=== PATIENT | male | born 1955 | race Caucasian/White ===

== ENCOUNTER 2019-04-27 11:42 | Inpatient (IN) ==
--- NOTE | 2019-04-27 11:51 | Emergency Department Note ---
Disposition Clinical Impression: Chest pain Qualifiers: Chest pain type: unspecified Qualified Code(s): R07.9 - Chest pain, unspecified Disposition: Admitted As Inpatient Condition: Fair Referrals: Jake Moore MD [Primary Care Provider] - Time of Disposition: 13:26 Chest Pain HPI - General Stated Complaint: CP Time Seen by Provider: 04/27/19 11:46 Vital Signs Reviewed: Yes Nursing Notes Reviewed: Yes - History of Present Illness HPI Narrative: 63-year-old male presents from home with little sister bedside for evaluation of chest pain. Onset approximate 7:30 this morning. It awoke him from sleep. De scribed as heaviness of right arm and shoulder and neck pain and heaviness present while he was laying down. Unchanged when he got up and walked. He then sat in a chair and his pain continued with the addition of right chest wall sharp stabbing sensation. Has shortness of breath and was diaphoretic. No nausea or vomiting. Very similar to him as his TN 2 years ago with exception of the location of the chest pain; was in the left parasternal 2 years ago and is now right upper parasternal today. PMH: Hypertension, hyperlipidemia, diabetes, CAD with ACS status post stent x3- 4. History of bilateral lower extremity chronic DVT on anticoagulant unknown to the patient. Habits: Current every day cigarette smoker. ROS: Positive: Right-sided chest pain including right shoulder, right arm, right neck with associated dyspnea or diaphoresis Negative: Nausea, vomiting, palpitations, trauma, fever, chills, abdominal pain, unusual back pain All systems ED: reviewed and negative except as stated. Review of Systems: As Per HPI Physical Exam Vital Signs Reviewed General: Patient is alert, oriented, and appears uncomfortable. Head: atraumatic, normocephalic Eye: normal appearance, PERRL, EOMI, no scleral icterus, no conjunctival injection ENT: mucous membranes moist, normal external ear exam Neck: normal inspection, trachea midline, full ROM Chest: normal inspection, symmetric chest rise. Mild pain to palpation of right upper chest wall. Respiratory: Good respiratory effort. Bilateral breath sounds are clear without wheezing, crackles, or rhonchi. Cardiovascular: Regular rate and rhythm. No clicks, rubs, gallops, or murmors. Normal heart sounds. Bilateral radial pulses 2/4 and equal. No pedal edema. Abdomen: Bowel sounds present normoactive. Abdomen is soft, nondistended, and nontender. No guarding or rebound. No organomegaly noted. Musculoskeletal: Spontaneously moving all extremities. Skin: warm, dry, intact. Neuro: GCS 15. No focal neurologic deficits observed. Psych: Patient's affect is appropriate for situation. Course Course Narrative: EKG #1 EKG dated 04/27/20 at 11:46 interpreted as sinus rhythm with rate of 69. NC 140, QRS was 6, QTC 423. Normal axis. 0.[address] elevation in lead 3, [address] elevation in lead V3. 0.[address] depression in aVL. No previous EKG for comparison. EKG #2 EKG dated at 1126 interpreted as sinus rhythm with rate of 73. NC 150, QRS 13, QTC 435. AVL unchanged in lead 3 unchanged. V3 with no ST elevation now. Chest x-ray is unremarkable. Serum hematology is unremarkable. Serum chemistries remarkable; initial troponin within normal limits. EKG demonstrates nonspecific ST-T changes. They do not follow an anatomic distribution and there are no reciprocal changes evident. Patient did not receive some nitroglycerin; he was chest pain-free. Thus far, patient has received full dose aspirin. Patient's cardiac history and his symptoms being similar to his pervious TN, he is agreeable to admission for continued evaluation. Patient currently does not have a vp hr diversity. He is agreeable to getting set up with a vp hr diversity at some point during his evaluation at this facility. I discussed the above the admitting hospitalist, Dr. Trevino, who agrees to acc ept the patient for continued cardiac evaluation. Chest X-Ray 04/27/19 12:03 IMPRESSION: No acute findings. D/ / 04/27/2019 12:26:24 Christopher Engel MD / christian Interpreting Provider: Christopher Engel MD Vital Signs Temperature 98.7 F 04/27/19 11:48 Pulse Rate 69 04/27/19 11:48 Respiratory Rate 14 04/27/19 11:48 Blood Pressure 162/109 04/27/19 11:48 O2 Sat by Pulse Oximetry 97 04/27/19 11:48 Temperature 98.7 F 04/27/19 11:48 Pulse Rate 69 04/27/19 11:48 Respiratory Rate 14 04/27/19 11:48 Blood Pressure 162/109 04/27/19 11:48 O2 Sat by Pulse Oximetry 97 04/27/19 11:48 Oxygen Delivery Oxygen Delivery Room Air Chest Pain - Lab Data Result diagrams: 04/27/19 11:56 04/27/19 11:56 Lab Results 04/27/19 04/27/19 04/27/19 Range/Units 11:56 11:56 11:56 WBC 15.2 H (4.3-11.1) K/mcL RBC 4.66 (4.19-5.50) M/mcL Hgb 15.6 (12.9-16.9) g/dL Hct 45.3 (37.5-50.1) % MCV 97.2 (83.0-100.0) fL MCH 33.5 H (28.0-33.3) pg MCHC 34.4 (31.6-35.5) g/dL RDW 13.2 (11.5-14.5) % Plt Count 230 (140-400) K/mcL MPV 9.6 (9.4-12.4) fL Immature Gran % 0.5 (0-4) % Seg Neutrophils % 69.6 % Lymphocytes % 22.7 % Monocytes % 5.8 % Eosinophils % 0.9 % Basophils % 0.5 % Neutrophils # 10.6 H (1.6-8.9) K/mcL Lymphocytes # 3.5 (0.6-4.6) K/mcL Monocytes # 0.9 (0.0-1.3) K/mcL Eosinophils # 0.1 (0.0-0.6) K/mcL Basophils # 0.1 (0.0-0.2) K/mcL PT 11.1 (9.4-12.1) Seconds INR 1.0 APTT 30.1 (26.0-36.0) Seconds Sodium 134 L (136-145) mEq/L Potassium 4.4 (3.5-5.1) mEq/L Chloride 100 (98-107) mEq/L Carbon Dioxide 26 (23-29) mEq/L BUN 13 (8-23) mg/dL Creatinine 0.84 (0.70-1.30) mg/dL Est GFR ( Amer) > 60 (> 60) Est GFR (Non-Af Amer) > 60 (> 60) BUN/Creatinine Ratio 15 (6-26) Glucose 203 H (70-105) mg/dL Calculated Osmolality 284 (280-300) Calcium 9.8 (8.6-10.3) mg/dL Troponin I 0.03 (< 0.04) ng/mL Heart Score - Score History: Moderately Suspicious EKG: Non Specific repolarisation Disturbance Age: 45-65 Risk Factors: Equal/Greater than 3 risk factor or history of atherosclerotic disease Troponin: Less than normal limit HEART Score Total: 5
[2019-04-27] MEDS ORDERED: Nitroglycerin 0.4 MG TAB.SUBL SL PRN (12:03)
[2019-04-27] MEDS ORDERED: Aspirin 81 MG TAB.CHEW PO ONE (12:03)
[2019-04-27 12:23] LABS: Basophils # 0.1 K/mcL (0.0-0.2); Basophils % 0.5 %; Eosinophils # 0.1 K/mcL (0.0-0.6); Eosinophils % 0.9 %; Hematocrit 45.3 % (37.5-50.1); Hemoglobin 15.6 g/dL (12.9-16.9); Immature Granulocytes % 0.5 % (0-4); Lymphocytes # 3.5 K/mcL (0.6-4.6); Lymphocytes % 22.7 %; Mean Corpuscular HGB Conc 34.4 g/dL (31.6-35.5); Mean Corpuscular Hemoglobin 33.5 pg (28.0-33.3); Mean Corpuscular Volume 97.2 fL (83.0-100.0); Mean Platelet Volume 9.6 fL (9.4-12.4); Monocytes # 0.9 K/mcL (0.0-1.3); Monocytes % 5.8 %; Neutrophils # 10.6 K/mcL (1.6-8.9); Platelet Count 230 K/mcL (140-400); Red Blood Count 4.66 M/mcL (4.19-5.50); Red Cell Distribution Width 13.2 % (11.5-14.5); Segmented Neutrophils % 69.6 %; White Blood Count 15.2 K/mcL (4.3-11.1)
[2019-04-27 12:32] LABS: Prothrombin Time 11.1 Seconds (9.4-12.1)
[2019-04-27 12:35] LABS: Activated Partial Thrombo Time 30.1 Seconds (26.0-36.0)
[2019-04-27 12:42] LABS: BUN/Creatinine Ratio 15 (6-26); Blood Urea Nitrogen 13 mg/dL (8-23); Calcium 9.8 mg/dL (8.6-10.3); Carbon Dioxide 26 mEq/L (23-29); Chloride 100 mEq/L (98-107); Glucose 203 mg/dL (70-105); Osmolality,Calculated 284 (280-300); Potassium 4.4 mEq/L (3.5-5.1); Sodium 134 mEq/L (136-145); Troponin I 0.03 ng/mL (< 0.04); eGFR For African Americans > 60 (> 60); eGFR For Non-African Americans > 60 (> 60)
[2019-04-27] MEDS ORDERED: Ondansetron 4 MG/2 ML VIAL IVP PRN (13:36)
[2019-04-27] MEDS ORDERED: Naloxone 0.4 MG/ML INJ IVP PRN (13:36)
[2019-04-27] MEDS ORDERED: *HR* Labetalol 20 MG/4 ML SYRINGE IVP PRN (13:38)
--- NOTE | 2019-04-27 13:53 | Emergency Department Note ---
Disposition Clinical Impression: Chest pain Qualifiers: Chest pain type: unspecified Qualified Code(s): R07.9 - Chest pain, unspecified Disposition: Admitted As Inpatient Condition: Fair Referrals: Jkae Moore MD [Primary Care Provider] - Time of Disposition: 13:53 General Adult HPI - General Chief complaint: ED Chest Pain Stated complaint: CP Time Seen by Provider: 04/27/19 11:46 Source: patient, family Limitations: no limitations - History of Present Illness Pain Scale: 6 Past Medical History - Past Medical History Medical history: Reports: DVT, diabetes, hyperlipidemia, hypertension, myocardial infarction - Social History Smoking Status: Never smoker Alcohol use: Reports: none Drug use: Reports: none Physical Exam - General Limitations: no limitations General appearance: alert, in distress Course Vital Signs Temperature 98.7 F 04/27/19 11:48 Pulse Rate 69 04/27/19 11:48 Respiratory Rate 14 04/27/19 11:48 Blood Pressure 162/109 04/27/19 11:48 O2 Sat by Pulse Oximetry 97 04/27/19 11:48 Temperature 98.7 F 04/27/19 11:48 Pulse Rate 69 04/27/19 11:48 Respiratory Rate 14 04/27/19 11:48 Blood Pressure 162/109 04/27/19 11:48 O2 Sat by Pulse Oximetry 97 04/27/19 11:48 Oxygen Delivery Oxygen Delivery Room Air Medical Decision Making - Lab Data Result diagrams: 04/27/19 11:56 04/27/19 11:56 Lab Results 04/27/19 04/27/19 04/27/19 Range/Units 11:56 11:56 11:56 WBC 15.2 H (4.3-11.1) K/mcL RBC 4.66 (4.19-5.50) M/mcL Hgb 15.6 (12.9-16.9) g/dL Hct 45.3 (37.5-50.1) % MCV 97.2 (83.0-100.0) fL MCH 33.5 H (28.0-33.3) pg MCHC 34.4 (31.6-35.5) g/dL RDW 13.2 (11.5-14.5) % Plt Count 230 (140-400) K/mcL MPV 9.6 (9.4-12.4) fL Immature Gran % 0.5 (0-4) % Seg Neutrophils % 69.6 % Lymphocytes % 22.7 % Monocytes % 5.8 % Eosinophils % 0.9 % Basophils % 0.5 % Neutrophils # 10.6 H (1.6-8.9) K/mcL Lymphocytes # 3.5 (0.6-4.6) K/mcL Monocytes # 0.9 (0.0-1.3) K/mcL Eosinophils # 0.1 (0.0-0.6) K/mcL Basophils # 0.1 (0.0-0.2) K/mcL PT 11.1 (9.4-12.1) Seconds INR 1.0 APTT 30.1 (26.0-36.0) Seconds Sodium 134 L (136-145) mEq/L Potassium 4.4 (3.5-5.1) mEq/L Chloride 100 (98-107) mEq/L Carbon Dioxide 26 (23-29) mEq/L BUN 13 (8-23) mg/dL Creatinine 0.84 (0.70-1.30) mg/dL Est GFR ( Amer) > 60 (> 60) Est GFR (Non-Af Amer) > 60 (> 60) BUN/Creatinine Ratio 15 (6-26) Glucose 203 H (70-105) mg/dL Calculated Osmolality 284 (280-300) Calcium 9.8 (8.6-10.3) mg/dL Troponin I 0.03 (< 0.04) ng/mL Attestation Statement - Attestation Attestation: I reviewed the residents documentation and agree with the residents assessment and plan of care. I have personally had face to face time with the patient. (Brief History, Brief Exam, and MDM) I personally supervised and was present for the coronel/critical portions of the following procedures completed by the resident: EKG 63 year old male presents to the ED ith complaints of chest pain and has a histroy of mutliple stents and otherwise has is having chest pain that is simiar to his chest pain in the past of his previous attacks. troponin negative, slight early reploratization on EKG in the anterior leads with reciporcal depressions. chest pain free, we have admitted to [facility] with aSA therapy given.
[2019-04-27] MEDS ORDERED: *HR* Dextrose 50 % in Water (Syg) 50 ML SYRINGE IVP PRN (14:12)
[2019-04-27] MEDS ORDERED: Dextrose Gel 15 GM/37.5 ML TUBE PO PRN ×2 (14:12)
[2019-04-27] MEDS ORDERED: D5% in Water 1,000 ML IVC PRN (14:12)
--- NOTE | 2019-04-27 14:12 | Internal Med History&Physical ---
Date of Encounter: 04/27/19 Time of Encounter: 13:30 Internal Medicine - H&P: HPI Chief complaint: Chest pain Admitted From: Home History of present illness: Mr. Whitney is a 63 year old male with history of CAD status post PCI 3 years ago, diabetes, hypertension, PAD, tobacco abuse, who presented to the ED with sudden onset of chest pain. Started this morning at 7:30 AM, substernal, described as heaviness, and non-radiating. No aggravating or relieving factors; although he has sublingual nitroglycerin, he did not try it prior to the presentation to the ER. Associated with diaphoresis but denies nausea/vomiting, shortness of breath, hemoptysis, palpitation, orthopnea, PND, leg swelling. No fever/chills, cough, sputum production, abdominal pain, dysuria, or change in bowel habits. In the ED, he was afebrile and hemodynamically stable. Labwork only showed leukocytosis of 15.2 but otherwise unremarkable with normal troponin. EKG showed Q waves in II, III, AVF, as well as minimal ST depression in 1 and aVL. Chest x-ray did not show any acute cardiopulmonary process. Patient was loaded with aspirin and admitted for further management. Past Med Surg Social Fam HX - Past Medical History Medical history: coronary artery disease, DVT, diabetes, hyperlipidemia, hype rtension, myocardial infarction - Past Surgical History Surgical History: angioplasty/stent Additional surgical history: IVC - Social History Smoking Status: Current every day smoker Alcohol use: none Drug use: none - Additional Family History Additional family history: No family history of premature CAD Internal Medicine - H&P: Meds Aspirin Enteric Coated [Aspirin EC] 81 mg PO DAILY 04/27/19 [History] Atorvastatin Calcium [Lipitor] 40 mg PO DAILY 04/27/19 [History] Bupropion HCl [Wellbutrin Xl] 300 mg PO DAILY 04/27/19 [History] Lisinopril [Zestril] 5 mg PO DAILY 04/27/19 [History] Metoprolol Tartrate [Lopressor] 25 mg PO DAILY 04/27/19 [History] Mirtazapine [Remeron] 30 mg PO DAILY 04/27/19 [History] metFORMIN [Glucophage] 500 mg PO BIDWM 04/27/19 [History] All Systems PM: A 10-system review of systems was performed and is negative for pertinent findings except as documented above in the HPI. - Constitutional Vitals: Temp Pulse Resp BP Pulse Ox 98.7 F 69 14 162/109 97 04/27/19 11:48 04/27/19 11:48 04/27/19 11:48 04/27/19 11:48 04/27/19 11:48 Exam: General: Alert and oriented, not in acute distress. HEENT:EOMI, pupils equal, round and reactive. Cardiovascular:Normal S1 & S2, No JVD. Pulse regular. No chest wall tenderness Lungs: clear to auscultation, no wheezes/rales Abdomen:Soft, non-tender, no rigidity. Extremities:No deformity or swelling Neurological:Normal cognition and motor skills. Non-focal Skin:Normal color, no rash, no lesions. Pulses:Carotid and radial pulses normal +2. Rest of the physical exam is non contributory Internal Med - H&P Results - Labs CBC & Chem 7: 04/27/19 11:56 04/27/19 11:56 Labs: Short CBC 04/27/19 Range/Units 11:56 WBC 15.2 H (4.3-11.1) K/mcL Hgb 15.6 (12.9-16.9) g/dL Hct 45.3 (37.5-50.1) % Plt Count 230 (140-400) K/mcL Neutrophils # 10.6 H (1.6-8.9) K/mcL BMP 04/27/19 11:56 Sodium 134 L Potassium 4.4 Chloride 100 Carbon Dioxide 26 BUN 13 Creatinine 0.84 Glucose 203 H Calcium 9.8 Cardiac Enzymes 04/27/19 Range/Units 11:56 Troponin I 0.03 (< 0.04) ng/mL - Impressions ITS Impressions Chest X-Ray 04/27/19 12:03 IMPRESSION: No acute findings. D/ / 04/27/2019 12:26:24 Christopher Engel MD / christian Interpreting Provider: Christopher Engel MD - Assessment and Plan (1) Chest pain Current Visit: Yes Status: Acute Assessment and plan: Atypical chest pain in a patient with history of CAD status post PCI, hypertension, diabetes, and active tobacco abuse First troponin negative, EKG showed minimal ST depression in I and AVL prior PCI at OSH, obtain old records trend troponin, telemetry resume ASA, statin. PRN nitro echocardiogram if troponin remains negative, for stress test on Monday Qualifiers: Chest pain type: unspecified Qualified Code(s): R07.9 - Chest pain, unspecified (2) CAD (coronary artery disease) Current Visit: Yes Status: Chronic Assessment and plan: resume home meds Qualifiers: Coronary Disease-Associated Artery/Lesion type: [place] artery [place] vs. transplanted heart: [place] heart Associated angina: angina presence unspecified Qualified Code(s): I25.10 - Atherosclerotic heart disease of [place] coronary artery without angina pectoris (3) Diabetes Current Visit: Yes Status: Chronic Assessment and plan: Hold off on metformin, low-dose sliding scale Qualifiers: Diabetes mellitus type: type 2 Diabetes mellitus manager long term care insulin use: without chcf use Diabetes mellitus complication status: with other specified complication Qualified Code(s): E11.69 - Type 2 diabetes mellitus with other specified complication (4) HTN (hypertension) Current Visit: Yes Status: Chronic Assessment and plan: Resume home meds, add when necessary labetalol Qualifiers: Hypertension type: essential hypertension Qualified Code(s): I10 - Essential (primary) hypertension (5) Tobacco abuse Current Visit: Yes Status: Acute Assessment and plan: smoking cessation advised NRT (6) DVT prophylaxis Current Visit: Yes Status: Acute Assessment and plan: SQ hep - Time Spent With Patient Total time spent is greater than 50% in coordination of care (as documented) at patient's floor/unit and/or counseling patient: 25 - 35 minutes
[2019-04-27] MEDS: Insulin LISPRO 300 UNITS/3 ML VIAL SQ SCH ×2 (16:50→20:55)
[2019-04-27] MEDS ORDERED: Acetaminophen 325 MG TABLET PO PRN (17:57)
[2019-04-27] MEDS ORDERED: *HR* Heparin 5,000 UNIT/ML VIAL SQ SCH (18:00)
[2019-04-27] MEDS ORDERED: *HR* Heparin 5,000 UNIT/ML VIAL IVP ONE (19:47)
[2019-04-27] MEDS ORDERED: *HR* Heparin 5,000 UNIT/ML VIAL IVP PRN ×2 (19:47)
[2019-04-27] MEDS ORDERED: Heparin 25,000 UNIT/250 ML D5W 25,000 UNIT/250 ML IV.SOLN IVC SCH (20:00)
[2019-04-27 20:34] LABS: Hematocrit 40.6 % (37.5-50.1); Mean Corpuscular HGB Conc 34.2 g/dL (31.6-35.5); Mean Corpuscular Hemoglobin 33.9 pg (28.0-33.3); Mean Platelet Volume 9.2 fL (9.4-12.4); Platelet Count 197 K/mcL (140-400); White Blood Count 13.6 K/mcL (4.3-11.1)
[2019-04-27 20:36] LABS: Hemoglobin 13.9 g/dL (12.9-16.9)
[2019-04-27 20:41] LABS: Heparin anti-factor XA UFH 0.02 IU/mL (0.30-0.70)
[2019-04-27 20:42] LABS: INR 1.1
[2019-04-27] MEDS: Mirtazapine 15 MG TABLET PO SCH (20:53)
--- NOTE | 2019-04-28 00:49 | Electrocardiograph Report ---
[place] [facility] Test Date: 2019-04-27 Pat Name: Sujit Whitney Department: EXAM32 Room: 3B39 Gender: M Province Archivist: : 1955 Requested By: Napoleon Becker Order Number: [id number] Reading MD: Oneil Soliz Measurements Intervals [place] Rate: 73 P: 72 MD: 150 QRS: 38 QRSD: 103 T: 60 QT: 394 QTc: 435 Interpretive Statements Sinus rhythm Abnormal inferior Q waves Minimal ST depression, lateral leads Electronically Signed On 04-28-2019 0:47:57 EDT by Oneil Soliz
[2019-04-28 02:43] LABS: Basophils % 0.3 %; Eosinophils # 0.1 K/mcL (0.0-0.6); Eosinophils % 0.6 %; Hematocrit 39.1 % (37.5-50.1); Hemoglobin 13.6 g/dL (12.9-16.9); Immature Granulocytes % 0.4 % (0-4); Lymphocytes # 3.6 K/mcL (0.6-4.6); Lymphocytes % 25.1 %; Mean Corpuscular HGB Conc 34.8 g/dL (31.6-35.5); Mean Corpuscular Hemoglobin 33.7 pg (28.0-33.3); Mean Platelet Volume 9.4 fL (9.4-12.4); Monocytes # 0.9 K/mcL (0.0-1.3); Neutrophils # 9.6 K/mcL (1.6-8.9); Platelet Count 182 K/mcL (140-400); Red Blood Count 4.03 M/mcL (4.19-5.50); Red Cell Distribution Width 13.1 % (11.5-14.5); Segmented Neutrophils % 67.6 %; White Blood Count 14.2 K/mcL (4.3-11.1)
[2019-04-28 02:58] LABS: BUN/Creatinine Ratio 21 (6-26); Blood Urea Nitrogen 17 mg/dL (8-23); Carbon Dioxide 25 mEq/L (23-29); Chloride 104 mEq/L (98-107); Glucose 181 mg/dL (70-105); Magnesium 1.6 mg/dL (1.6-2.6); Osmolality,Calculated 288 (280-300); Potassium 4.5 mEq/L (3.5-5.1); Sodium 136 mEq/L (136-145); eGFR For African Americans > 60 (> 60); eGFR For Non-African Americans > 60 (> 60)
--- NOTE | 2019-04-28 06:52 | Event Note ---
Date of Encounter: 04/28/19 Time of Encounter: 06:45 Patient admitted for chest pain and currently on heparin drip. Patient's initial troponin less than 0.03. Second troponin 0.83, third 3.95, and fourth 7.17. Cardiology consult ordered but not confirmed. A.M. team to follow-up and confirm Cardiology consult. Pt. reporting SOB but currently denying CP. Nurse instructed to continue monitoring the pt. closely and alert myself or A.M. Hospitalist of any adverse changes.
--- NOTE | 2019-04-28 07:58 | Cardiology Consult Note ---
Date of Encounter: 04/28/19 Time of Encounter: 07:55 Assessment and Plan (1) NSTEMI (non-ST elevated myocardial infarction) Current Visit: Yes Status: Acute EKG changes suggestive of ischemia in the inferior territory along with elevated troponin and peak of 7.4. Patient will obtain echocardiogram to rule out structural heart abnormalities and repeat cardiac enzymes. Currently on IV heparin and aspirin and Plavix. Patient is completely chest pain-free resting comfortably. Risks benefits and alternatives of Lasix were discussed the patient and he agrees to proceed Discussion w patient/family: The assessment and plan as outlined above was discussed with the patient and/or family members who expressed understanding and agreement. All questions were answered. Thank you for involving us in the care of your patient. Please call with any questions. History of Present Illness Consult date: 04/28/19 Consult reason: Chest Pain Chief complaint: Chest Pain History of present illness: Mr. Whitney is a 63 year old male with multiple cardiac risk factors including diabetes, hypertension, hyperlipidemia, coronary artery disease status post-PCI in the past to unknown arteries presents with retrosternal chest pain nonradiating feels similar to what he had during his previous myocardial infarction. Initial troponin 0.83 current peak at 7.3 however asymptomatic denies any chest pain at the current time. He's been placed on IV heparin and continues on aspirin and Plavix. EKG shows inferior changes. Risks benefits and alternatives of and LHC were discussed patient and he agrees to proceed. We will repeat cardiac enzymes and obtain echocardiogram to help risk stratify urgency of LHC. Currently patient resting comfortably denies any chest pain or shortness of breath Past Med Surg Social Fam HX - Past Medical History Medical history: coronary artery disease, DVT, diabetes, hyperlipidemia, hypertension, myocardial infarction - Past Surgical History Surgical History: angioplasty/stent Additional surgical history: IVC - Social History Smoking Status: Current every day smoker Alcohol use: none Drug use: none Medications and Allergies Aspirin Enteric Coated [Aspirin EC] 81 mg PO DAILY 04/27/19 [History] Atorvastatin Calcium [Lipitor] 40 mg PO DAILY 04/27/19 [History] Bupropion HCl [Wellbutrin Xl] 300 mg PO DAILY 04/27/19 [History] Lisinopril [Zestril] 5 mg PO DAILY 04/27/19 [History] Metformin HCl [Metformin ER Osmotic] 500 mg PO BIDWM 04/27/19 [History] Metoprolol Tartrate [Lopressor] 25 mg PO DAILY 04/27/19 [History] Mirtazapine [Remeron] 30 mg PO HS 04/27/19 [History] Allergy/AdvReac Type Severity Reaction Status Date / Time No Known Allergies Allergy Verified 04/27/19 14:48 All Systems Review: The remainder of the systems were reviewed and are negative Physical Examination General: Conversant, No Apparent Distress HEENT: Atraumatic, Normocephaly, Mucus Membranes Moist Neck: No JVD, Normal carotid pulses Cardiac: Reg Rate and Rhythm, Normal S1 and S2, No Murmur Lungs: Normal Breath Sounds, No Wheeze, Rales, Rhonchi Neuro: Alert and responsive, No focal deficits noted Abdomen: Soft, Non-Tender Skin: No rashes noted on visualized skin Musculoskeletal: No Chest Wall Tenderness Extremities: No Clubbing, No Cyanosis, No Edema, Normal Pulses Results 04/28/19 02:25 04/28/19 02:25 Lab Results 04/27/19 04/27/19 04/27/19 11:56 11:56 11:56 WBC 15.2 H Hgb 15.6 Hct 45.3 Plt Count 230 INR 1.0 APTT 30.1 Sodium 134 L Potassium 4.4 Chloride 100 Carbon Dioxide 26 BUN 13 Creatinine 0.84 Glucose 203 H Calcium 9.8 Magnesium Troponin I 0.03 04/27/19 04/27/19 04/27/19 18:26 20:17 20:17 WBC 13.6 H Hgb 13.9 D Hct 40.6 Plt Count 197 INR 1.1 APTT Sodium Potassium Chloride Carbon Dioxide BUN Creatinine Glucose Calcium Magnesium Troponin I 0.83 H* 04/28/19 04/28/19 04/28/19 00:10 02:25 02:25 WBC 14.2 H Hgb 13.6 Hct 39.1 Plt Count 182 INR APTT Sodium 136 Potassium 4.5 Chloride 104 Carbon Dioxide 25 BUN 17 Creatinine 0.82 Glucose 181 H Calcium 9.0 Magnesium 1.6 Troponin I 3.95 H* 04/28/19 05:59 WBC Hgb Hct Plt Count INR APTT Sodium Potassium Chloride Carbon Dioxide BUN Creatinine Glucose Calcium Magnesium Troponin I 7.17 H* Consult Discharge Plan - Plan
[2019-04-28] MEDS: Nicotine 14 MG PATCH.TD24 TD SCH (09:13)
[2019-04-28] MEDS: Aspirin Enteric Coated 81 MG Tablet PO SCH (09:14)
[2019-04-28] MEDS: BuPROPion XL (24 HR) 150 MG TABLET PO SCH (09:14)
[2019-04-28] MEDS: Insulin LISPRO 300 UNITS/3 ML VIAL SQ SCH ×4 (09:18→20:56)
--- NOTE | 2019-04-28 10:54 | Internal Med Progress Note ---
Hospitalist Progress Note - Encounter Date of Encounter: 04/28/19 Time of Encounter: 07:45 - Subjective Interval History: Overnight event noted. Patient reports improvement in his chest pain but his troponin trended up to 7.17. Heparin drip was started. Denies any nausea/vomiting, cough, palpitation, or diaphoresis - Exam Vitals: Temp Pulse Resp BP Pulse Ox 97.6 F 55 15 119/74 94 04/28/19 08:01 04/28/19 08:01 04/28/19 08:01 04/28/19 08:01 04/28/19 08:01 Exam: General: Alert and oriented, not in acute distress. Cardiovascular:Normal S1 & S2, No JVD. Pulse regular. No chest wall tenderness Lungs: clear to auscultation, no wheezes/rales Abdomen:Soft, non-tender, no rigidity. Extremities:No deformity or swelling Neurological:Normal cognition and motor skills. Non-focal - Assessment and Plan (1) NSTEMI (non-ST elevated myocardial infarction) Current Visit: Yes Status: Acute Assessment and Plan: Atypical chest pain in a patient with history of CAD status post PCI, hypertension, diabetes, and active tobacco abuse First troponin negative but subsequent ones increased to 7.17, EKG showed minimal ST depression in I and AVL started on hep gtt overnight, continue continue to trend troponin till it peaks, a/w for echocardiogram, telemetry discussed with cardiology, will wait for next troponin and echocardiogram before deciding on the timing of LHC prior PCI at OSH, obtain old records continue ASA, statin. PRN nitro (2) CAD (coronary artery disease) Current Visit: Yes Status: Chronic Assessment and Plan: as above (3) Diabetes Current Visit: Yes Status: Chronic Assessment and Plan: Hold off on metformin, low-dose sliding scale (4) HTN (hypertension) Current Visit: Yes Status: Chronic Assessment and Plan: Resume home meds, add when necessary labetalol (5) Tobacco abuse Current Visit: Yes Status: Acute Assessment and Plan: smoking cessation advised NRT (6) DVT prophylaxis Current Visit: Yes Status: Acute Assessment and Plan: hep gtt - Time Spent with Patient Total time spent is greater than 50% in coordination of care (as documented) at patient's floor/unit and/or counseling patient: 25 - 35 minutes Plan of Care Discussed with: patient (discussed with cardiology) Internal Medicine: Result - Labs CBC & Chem 7: 04/28/19 02:25 04/28/19 02:25 Labs: Short CBC 04/27/19 04/27/19 04/28/19 Range/Units 11:56 20:17 02:25 WBC 15.2 H 13.6 H 14.2 H (4.3-11.1) K/mcL Hgb 15.6 13.9 D 13.6 (12.9-16.9) g/dL Hct 45.3 40.6 39.1 (37.5-50.1) % Plt Count 230 197 182 (140-400) K/mcL Neutrophils # 10.6 H 9.6 H (1.6-8.9) K/mcL BMP 04/27/19 04/28/19 11:56 02:25 Sodium 134 L 136 Potassium 4.4 4.5 Chloride 100 104 Carbon Dioxide 26 25 BUN 13 17 Creatinine 0.84 0.82 Glucose 203 H 181 H Calcium 9.8 9.0 Cardiac Enzymes 04/27/19 04/27/19 04/28/19 Range/Units 11:56 18:26 00:10 Troponin I 0.03 0.83 H* 3.95 H* (< 0.04) ng/mL 04/28/19 Range/Units 05:59 Troponin I 7.17 H* (< 0.04) ng/mL - ABG Interpretation ABG results: PT/INR, D-dimer PT 12.0 Seconds (9.4-12.1) 04/27/19 20:17 - Impressions Impressions Chest X-Ray 04/27/19 12:03 IMPRESSION: No acute findings. D/ / 04/27/2019 12:26:24 Christopher Engel MD / christian Interpreting Provider: Christopher Engel MD Consult Discharge Plan - Plan Referrals: Jake Moore MD [Primary Care Provider] - (2) CAD (coronary artery disease) Qualifiers: Coronary Disease-Associated Artery/Lesion type: [place] artery [place] vs. transplanted heart: [place] heart Associated angina: angina presence unspecified Qualified Code(s): I25.10 - Atherosclerotic heart disease of [place] coronary artery without angina pectoris (3) Diabetes Qualifiers: Diabetes mellitus type: type 2 Diabetes mellitus terminal gauger insulin use: without correction use Diabetes mellitus complication status: with other specified complication Qualified Code(s): E11.69 - Type 2 diabetes mellitus with other specified complication (4) HTN (hypertension) Qualifiers: Hypertension type: essential hypertension Qualified Code(s): I10 - Essential (primary) hypertension
[2019-04-28] MEDS ORDERED: 0.9 % Sodium Chloride 1,000 ML ONE ×2 (12:21→12:24)
[2019-04-28] MEDS ORDERED: ISOVUE-370 200 ML INFUS..BTL ONE (12:22)
[2019-04-28] MEDS ORDERED: Heparin 1,000 UNITS/500 mL 500 ML ONE (12:22)
[2019-04-28] MEDS ORDERED: Nitroglycerin 1,000 MCG/10 ML VIAL IV ONE (12:22)
[2019-04-28] MEDS ORDERED: *HR* Heparin 10,000 UNIT/10 ML VIAL ONE (12:22)
[2019-04-28] MEDS ORDERED: *HR* FentaNYL (PF) 100 MCG/2 ML VIAL ONE (13:00)
[2019-04-28] MEDS ORDERED: *HR* Midazolam HCl 2 MG/2 ML VIAL ONE (13:00)
--- NOTE | 2019-04-28 13:00 | Pre-Sedation Evaluation ---
Pre-sedation evaluation - Pre-sedation checklist Date of procedure: 04/28/19 Procedure: C Recent Vitals: Last Vital Signs Temp 97.9 F 04/28/19 11:20 Pulse 63 04/28/19 11:20 Resp 16 04/28/19 11:20 BP 113/73 04/28/19 11:20 Pulse Ox 93 04/28/19 11:20 H&P (including ROS) documented in medical record: Yes Previous reaction to sedatives/anesthetics: No Dietary Status: NPO after Midnight ASA Classification *see protocol: CLASS II-Mild systemic disease Cardiac Registry (Cardio Only) - Functional Capacity Functional Capacity: >=4 METS without symptoms - Clincal Frailty Scale Clinical Frailty Scale: Managing Well
--- NOTE | 2019-04-28 13:42 | Invasive Diagnostic Lab Proc ---
Name: Sujit Whitney Date of Study: 04/28/2019 Date: 1955 Ht: 70.1in Medical Record#: [id number] Age: 63 Wt: 222.89lb Gender: Male BSA: 2.19 Order #: [id number] BMI: 31.91 Physicians Procedure Physician: Wally Mccoy MD Referring MD: Referring MD: Staff Name Position Time In Roseann Patricia RN Monitor 12:46 PM Maliha Collins RT (R) Scrub 12:46 PM Nancie Ibarra RT (R) Scrub 12:46 PM Shelton Wilkerson RN Prospecting Driller 12:46 PM Indications Indication Non-Stemi Procedures Performed Procedure L HRT ARTERY/VENTRICLE ANGIO Pre-Procedure Checklist Informed consent is complete signed and on chart. H&P is on chart. ID band is on and ID verified with patient. Patient NPO for procedure The procedure was described for the patient and questions were answered. Blood Pressure: 113/73 ECG is on chart. Rhythm: NSR Plan of Care Patient will tolerate the procedure without complications. Adequate level of comfort will be maintained. Hemodynamics will remain stable Patient will recover from procedure without complications. Respiratory function will be maintained. Cardiac rhythm will remain stable. Patient temperature will be maintained. Patient and/or family have verbalized understanding of the procedure. Patient Education Chief Complaint/Reason for Test: Cardiac Cath Developmental Category: Adult (18-64 years) Developmentally Appropriate for Age: Yes Learning Barriers: None Education Needs: Procedure Education Method: Verbal Information Taught: Cardiac Cath Educational Evaluation: Able to repeat information Intravenous Access Time IV Size Location DC'd Fluid/Drip Rate Units RN 20g 1 10/12" Patent On Arrival Rt Antecubital 0.9NaCl 50 ml/hr Shelton Wilkerson RN Allergies No Known Allergies Vital Signs Time BP (mmHg) HR (bpm) O2 Sat. RR (bpm) LOC 113 / 73 63 93 % 16 5 = Fully awake and oriented or at pre-proc level 12:47 PM / % 5 = Fully awake and oriented or at pre-proc level 12:47 PM / % 4 = Oriented but drowsy 01:16 PM 113 / 69 69 97 % 27 01:21 PM 124 / 80 75 97 % 15 12:51 PM 130 / 80 63 94 % 17 12:56 PM 118 / 73 63 94 % 20 01:01 PM 119 / 72 62 97 % 18 01:06 PM 114 / 74 69 97 % 15 01:11 PM 119 / 75 68 97 % 16 Procedural Medications Time Medication Dose Units Method Given By 01:00 PM Oxygen 2 L/min nasal cannula Shelton Wilkerson RN 01:00 PM Versed 1 mg Intravenous Shelton Wilkerson RN 01:00 PM Fentanyl 50 mcg Intravenous Shelton Wilkerson RN 01:06 PM Lidocaine 2% 20 ml Subcutaneous Wally Mccoy MD ASA Classification: CLASS II- Mild systemic disease (i.e. well-controlled diabetes, hypertension, asthma, cigarette smoking) [place] Score Preprocedure Postprocedure Activity 2- Moves 4 extremities sustained head lift Activity 2- Moves 4 extremities sustained head lift Circulation 2- SBP +/= 20 points of pre-anesthetic level Circulation 2- SBP +/= 20 points of pre-anesthetic level Consciousness 2- Awake and alert oriented x 3 Consciousness 2- Awake and alert oriented x 3 O2 Saturation 2- Able to maintain O2 satruation of 92% on room air O2 Saturation 2- Able to maintain O2 satruation of 92% on room air Respiratory 2- Able to deep breathe and cough well Respiratory 2- Able to deep breathe and cough well Total Score 10 Total Score 10 Contrast Agent: Isovue Diagnostic Contrast: 62 ml Total Contrast: 62 ml Fluoro Dose: 31 mGy Activated Clotting Time Time Seconds to Clot 01:16 PM 152 Procedure Log Time Note Enter By 12:46 PM Roseann Patricia RN Position: Monitor Time in: 12:46 kmavis 12:46 PM Maliha Collins RT (R) Position: Scrub Time in: 12:46 kmavis 12:46 PM Nancie Ibarra RT (R) Position: Scrub Time in: 12:46 kmavis 12:46 PM Shelton Wilkerson RN Position: Prospecting Driller Time in: 12:46 kmavis 12:46 PM Pt arrived to laborer salvage 2 at 12:46 kmavis 12:46 PM Patient charges- Angio tray pack, Navilyst 3mm J, Pulse Oximetry and ACIST tubing and transducer kmavis 12:46 PM Case Delayed No kmavis 12:47 PM Hair removed from procedure site in procedure lab using clippers. Bilateral groin prepped with Chloraprep by Maliha Collins RT (R), then patient was draped. Skin intact. [facility] 12:47 PM Pooja paged/called 12:47. kmavis 12:47 PM Heparin drip was turned off in room prior to arrival to labor relations representative kmavis 12:47 PM Time: 12:47 Patient comfortable and pain free: Yes [facility] 12:47 PM Time: 12:47LOC: 5 = Fully awake and oriented or at pre-proc level kmavis 12:50 PM CathStat 12:50 PM Vitals capture started with the following parameters, Patient=Adult, Interval=5 min, Initial Gutqeeiw=957 mmHg, Deflation Rate=3 mmHg, Cuff placed on Right Arm 12:51 PM HR=63 bpm, OYRJ=652/80 mmhg, SpO2=94 %, Resp=17 B/min 12:53 PM Recorded ECG: HR=63 Condition=Condition 1 12:53 PM Physician arrived 12:53 [facility] 12:53 PM Meet and greet completed [facility] 12:53 PM Sign in performed according to hospital policy. Informed consent was obtained. [facility] 12:53 PM Procedure start 12:53 [facility] 12:53 PM Pooja responded and notified patient is ready 12:49 [facility] 12:56 PM HR=63 bpm, KRMJ=473/73 mmhg, SpO2=94.0 %, Resp=20 B/min 01:00 PM Time: 13:00 Oxygen on at 2 L/min per nasal cannula [facility] PM Time: 13:00 Versed 1 mg Intravenous Given by Shelton [facility]kesron [facility] 01:00 PM Time: 13:00 Fentanyl 50 mcg Intravenous Given by Shelton Wilkerson RN [facility] 01:01 PM HR=62 bpm, ABOL=841/72 mmhg, SpO2=97.0 %, Resp=18 B/min 01:02 PM Time: 12:47LOC: 4 = Oriented but drowsy kmavis 01:02 PM Time: 12:47 Patient comfortable and pain free: Yes [facility] 01:03 PM ASA Class CLASS II- Mild systemic disease (i.e. well-controlled diabetes, hypertension, asthma, cigarette smoking) [email or web address] 01:03 PM Pressure channel 1 zeroed. 01:06 PM Time out was performed according to hospital policy. Conscious sedation and anesthesia was achieved (see medication log with in this report above) kmavis 01:06 PM HR=69 bpm, ZMPJ=963/74 mmhg, SpO2=97.0 %, Resp=15 B/min, Comment=nsr 01:06 PM Time: 13:06 20 ml Lidocaine 2% to right groin Subcutaneous Given by Wally Mccoy MD kmavis 01:09 PM Access obtained by percutaneous puncture. 6Fr 10cm Terumo [place] sheath placed in right Femoral artery. [id number] kmavis 01:10 PM 5Fr FR 4 catheter inserted over the wire [facility] kmavis 01:10 PM 0.035 145cm Navilyst 3mmJ wire [id number] kmavis 01:10 PM RCA angiography performed in multiple views. kmavis 01:11 PM HR=68 bpm, VWAK=228/75 mmhg, SpO2=97.0 %, Resp=16 B/min 01:11 PM Recorded Pressure: Ao, HR=65, Condition=Condition 1 (Aorta) Ao 125/77/97 01:12 PM Catheter removed kmavis 01:13 PM 5Fr FL 4 catheter inserted over the wire [facility] kmavis 01:14 PM LCA angiography performed in multiple views. kmavis 01:14 PM Recorded Pressure: Ao, HR=75, Condition=Condition 1 (Aorta) Ao 97/69/83 01:15 PM Catheter removed kmavis 01:16 PM 5Fr Pigtail catheter inserted over the wire [facility] kmavis 01:16 PM Catheter crossed the aortic valve and was selectively placed in the left ventricle. Pressures recorded on pullback for left heart catheterization. kmavis 01:16 PM HR=69 bpm, EQAK=886/69 mmhg, SpO2=97.0 %, Resp=27 B/min 01:16 PM Bolus angiogram of left Ventricle complete: 10 ml/sec for a total of 20 mls kmavis 01:17 PM Recorded Pressure: LV, HR=73, Condition=Condition 1 (Left Ventricle) LV 116/16/27 01:17 PM Recorded Pressure: LV, Ao, HR=75, Condition=Condition 1 (Left Ventricle) LV 105/27/29, (Aorta) Ao 112/82/96 01:17 PM At 13:16 the ACT was 152 seconds. kmavis 01:18 PM Catheter removed kmavis 01:18 PM Coronary Dominance: right kmavis 01:19 PM Lesion found in Mid RCA. Pre Stenosis: 100 Pre DARIN Flow: kmavis 01:19 PM Right Coronary, Right Posterior Descending Arteries with Right Posterolateral and Acute Marginal branches with 100 % stenosis. If graft is supplying this area, 0 % stenosis kmavis 01:19 PM Procedure completed at 13:19 04/28/2019 kmavis 01:19 PM Did you address DARIN flow and Dominance? YesCoronary Dominance: right kmavis 01:20 PM Sign out completed: Radiation Dose 224.07 mGy, 31.2 Gy/cm2 Fluoro Time: 2.1 Isovue 370 - 200ml contrast 62 ml given by Wally Mccoy MD. Complications: None. The patient was discharged out of the labor relations representative in stable condition. Sedation minutes 20. Cardiac Rehab Consult needed: No. Confirmed administered medications: Yes kmavis 01:20 PM Isovue 370 - 200ml,1 Bottle(s) used. kmavis 01:21 PM HR=75 bpm, YKCU=200/80 mmhg, SpO2=97.0 %, Resp=15 B/min 01:21 PM Arterial sheath pulled using manual compression and V+ Pad for 15 minutes by Nancie Ibarra RT (R) kmavis 01:21 PM Estimated Blood Loss: minimal kmavis 01:21 PM Post Blood Pressure 124/80 kmavis 01:21 PM Information taught Cardiac Cath kmavis 01:22 PM Education needs Procedure, Plan of Care, and Disease Process kmavis 01:22 PM Learning barriers :None kmavis 01:22 PM Education Methods Verbal kmavis 01:22 PM Education evaluation Able to repeat information kmavis 01:22 PM Site status No bleeding/ No Hematoma - Rt Groin as reported by Nancie Ibarra RT (R) at 13:22 kmavis 01:22 PM Delay to floor No kmavis 01:24 PM Report given to Paula KC Pt taken to 3B Room #39. 13:23 kmavis 01:24 PM Plavix, Effient or Brilinta given No kmavis 01:24 PM Complications: None kmavis 01:33 PM Site status No bleeding/ No Hematoma - Rt Groin as reported by Nancie Ibarra RT (R) at 13:33 kmavis 01:34 PM Patient out of room: 13:34 kmavis 01:34 PM Opsite applied kmavis Complications Complication None None Hemodynamics Pressures Site Systolic/A Wave Diastolic/V Wave Mean AO 125 77 97 AO 97 69 83 LV 116 16 27 LV 105 27 29 AO 112 82 96 Post Procedure Information Blood Pressure: 124/80 mmHg Post procedural instructions were given Site Checks Time Location Status Staff Sheath In? Note 01:22 PM Rt Groin No bleeding/ No Hematoma Nancie Ibarra RT (R) 01:33 PM Rt Groin No bleeding/ No Hematoma Nancie Ibarra RT (R) Pulses Time Site Pre-Procedure Post-Procedure Note Bilateral DP 1+ Bilateral radial 2+ Updated by Roseann Patricia RN on 04/28/2019 1:34:36 PM electronically signed on 04/28/2019 1:35:11 PM with status of Final
[2019-04-28] MEDS: Mirtazapine 15 MG TABLET PO SCH (21:06)
[2019-04-29 01:18] LABS: Basophils # 0.1 K/mcL (0.0-0.2); Basophils % 0.4 %; Eosinophils # 0.1 K/mcL (0.0-0.6); Eosinophils % 0.6 %; Hematocrit 41.3 % (37.5-50.1); Hemoglobin 13.9 g/dL (12.9-16.9); Immature Granulocytes % 0.3 % (0-4); Lymphocytes # 3.3 K/mcL (0.6-4.6); Lymphocytes % 26.8 %; Mean Corpuscular HGB Conc 33.7 g/dL (31.6-35.5); Mean Corpuscular Hemoglobin 32.8 pg (28.0-33.3); Mean Corpuscular Volume 97.4 fL (83.0-100.0); Mean Platelet Volume 9.7 fL (9.4-12.4); Monocytes # 0.9 K/mcL (0.0-1.3); Monocytes % 7.6 %; Platelet Count 196 K/mcL (140-400); Red Blood Count 4.24 M/mcL (4.19-5.50); Red Cell Distribution Width 13.2 % (11.5-14.5); Segmented Neutrophils % 64.3 %; White Blood Count 12.4 K/mcL (4.3-11.1)
[2019-04-29 01:40] LABS: BUN/Creatinine Ratio 21 (6-26); Blood Urea Nitrogen 20 mg/dL (8-23); Calcium 9.1 mg/dL (8.6-10.3); Carbon Dioxide 23 mEq/L (23-29); Chloride 104 mEq/L (98-107); Glucose 149 mg/dL (70-105); Osmolality,Calculated 293 (280-300); Potassium 4.5 mEq/L (3.5-5.1); Sodium 139 mEq/L (136-145); eGFR For African Americans > 60 (> 60); eGFR For Non-African Americans > 60 (> 60)
[2019-04-29 07:28] VITALS: BP 147/84
[2019-04-29] MEDS ORDERED: Metoprolol XL (24 HR) Succ 25 MG TAB.ER.24H PO SCH (09:00)
[2019-04-29] MEDS: BuPROPion XL (24 HR) 150 MG TABLET PO SCH (09:02)
[2019-04-29] MEDS: Aspirin Enteric Coated 81 MG Tablet PO SCH (09:02)
[2019-04-29] MEDS: Insulin LISPRO 300 UNITS/3 ML VIAL SQ SCH (09:02)
[2019-04-29] MEDS: Nicotine 14 MG PATCH.TD24 TD SCH (09:03)
--- NOTE | 2019-04-29 09:29 | Discharge Summary ---
- NOTES TO OUTPATIENT PROVIDER Notes to Outpatient Provider: Follow with cardiology and cardiac rehabilitation Orders not resulted at time of discharge: Pending orders 04/28/19 12:27 CL Cardiac Catheterization [CL] Routine 04/30/19 04:00 BMP [Basic Metabolic Panel] AM 0400 Date of Encounter: 04/29/19 Time of Encounter: 07:30 - Discharge Diagnosis (1) NSTEMI (non-ST elevated myocardial infarction) Priority: Primary Status: Acute (2) CAD (coronary artery disease) Priority: Secondary Status: Chronic Qualifiers: Coronary Disease-Associated Artery/Lesion type: [place] artery [place] vs. 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 Whitney is a 63 year old male with history of CAD status post PCI 3 years ago, diabetes, hypertension, PAD, tobacco abuse, who was admitted for chest pain and was diagnosed with NSTEMI with troponin trending up to 7. Started on hep gtt and underwent LHC on 04/28 which showed chronic occlusion of RCA with collaterals. Echocardiogram showed EF 40-45% (not sure if it is new/old due to lack of records) and he will be discharged on ASA, statin (increased to 80mg), bb, GENA- i, and the addition of Imdur. He will need to follow up with cardiology and cardiac rehab as outpatient. Smoking cessation was emphasized to the pt multiple times and he was given nicotine patch upon discharge. Discharge discussed with: patient, nurse, social work, case management - Time Spent with Patient Total time spent providing and/or coordinating discharge services: 32 mins - Discharge Medications Prescriptions: New Isosorbide MONOnitrate (24 HR) [Imdur] 30 mg PO DAILY #30 tab.er.24h Nicotine Patch [Nicoderm] 14 mg TD DAILY #14 patch.td24 Nitroglycerin 0.4 mg SL Q5MPRN PRN #90 tab.subl PRN Reason: Chest Pain Metoprolol XL (24 HR) Succ [Toprol Xl] 25 mg PO DAILY #30 tab.er.24h Atorvastatin [Lipitor] 80 mg PO HS #60 tablet Continued Lisinopril [Zestril] 5 mg PO DAILY Bupropion HCl [Wellbutrin Xl] 300 mg PO DAILY Aspirin Enteric Coated [Aspirin EC] 81 mg PO DAILY Mirtazapine [Remeron] 30 mg PO HS Metformin HCl [Metformin ER Osmotic] 500 mg PO BIDWM Discontinued Metoprolol Tartrate [Lopressor] 25 mg PO DAILY Atorvastatin Calcium [Lipitor] 40 mg PO DAILY Home Medications: Aspirin Enteric Coated [Aspirin EC] 81 mg PO DAILY 04/27/19 [History] Bupropion HCl [Wellbutrin Xl] 300 mg PO DAILY 04/27/19 [History] Lisinopril [Zestril] 5 mg PO DAILY 04/27/19 [History] Metformin HCl [Metformin ER Osmotic] 500 mg PO BIDWM 04/27/19 [History] Mirtazapine [Remeron] 30 mg PO HS 04/27/19 [History] Atorvastatin [Lipitor] 80 mg PO HS #60 tablet 04/29/19 [Rx] Isosorbide MONOnitrate (24 HR) [Imdur] 30 mg PO DAILY #30 tab.er.24h 04/29/19 [Rx] Metoprolol XL (24 HR) Succ [Toprol Xl] 25 mg PO DAILY #30 tab.er.24h 04/29/19 [Rx] Nicotine Patch [Nicoderm] 14 mg TD DAILY #14 patch.td24 04/29/19 [Rx] Nitroglycerin 0.4 mg SL Q5MPRN PRN #90 tab.subl 04/29/19 [Rx] Allergies/Adverse Reactions: Allergy/AdvReac Type Severity Reaction Status Date / Time No Known Allergies Allergy Verified 04/27/19 14:48 Date of admission: 04/28/19 11:02 Primary care physician: Jake Moore MD Consults: 04/28/19 06:47 Consult to Cardiology [CONS] Routine Comment: Consulting Provider: Cardiology Magali Reason for Consult: Patient admitted for CP. Initial troponin <0.03. Then 0.83, 3.95, and 7.17. Pt. on heparin gtt currently. Denies CP but reports SOB. Call Completed: No - Constitutional Vitals: Temp Pulse Resp BP Pulse Ox 97.6 F 75 16 147/84 94 04/29/19 07:23 04/29/19 07:23 04/29/19 07:23 04/29/19 07:23 04/29/19 07:23 Exam: General: Alert and oriented, not in acute distress. Cardiovascular:Normal S1 & S2, No JVD. Pulse regular. No chest wall tenderness Lungs: clear to auscultation, no wheezes/rales Abdomen:Soft, non-tender, no rigidity. Extremities:No deformity or swelling. L groin without hematoma, neurovascularly intact distally Neurological:Normal cognition and motor skills. Non-focal - Patient Status Disposition: Home, Self-Care Condition: Fair Functional capacity at discharge: independent ambulation Overall status at discharge: patient is progressing back to baseline - Discharge Instructions Instructions: Diabetes Mellitus Type 2 in Adults (DC), Chronic Hypertension (DC) Follow Up With: Jake Moore MD [Primary Care Provider] - 05/07/19 8:15 am Wally Mccoy [Partnered Physician] - Forms: ED Satisfaction Letter - Diet and Activity Activity: as per the cardiac rehab Diet: diabetic diet
--- NOTE | 2019-04-29 09:33 | Cardiology Progress Note ---
Date of Encounter: 04/29/19 Time of Encounter: 09:30 Assessment and Plan (1) NSTEMI (non-ST elevated myocardial infarction) Current Visit: Yes Status: Acute Per Cardiology: Initial troponin negative and subsequent with peak troponin of 10.62. EF 40-45% on echo. Underwent left heart catheterization and found to have mid RCA 100% lesion with collaterals from left to right with no intervention performed. Currently chest pain-free. On aspirin, statin, beta wayne, GENA inhibitor, and SL NTG. Postprocedure education provided. Post [place] education provided. Prepping for discharge home in stable condition. All questions answered. Cardiology signed off, reconsult as needed, follow-up arranged. (2) Tobacco abuse Current Visit: Yes Status: Chronic Per Cardiology: History of smoking 3 packs per day. Reports currently smoking about half a pack per day. Interested in nicotine patch at discharge. I did spend about 3 minutes today providing smoking cessation counseling and education. He should highly encouraged to quit smoking. Discussion w patient/family: The assessment and plan as outlined above was discussed with the patient and/or family members who expressed understanding and agreement. All questions were answered. Thank you for involving us in the care of your patient. Please call with any questions. Subjective Principal diagnosis: NSTEMI Interval history: Denies any chest pain. Denies any concerns over night. Denies any concerns from his right groin site. Prepping for discharge home. Objective Vital Signs, Last 4 Hours Temp Pulse Resp BP Pulse Ox 04/29/19 07:23 97.6 F 75 16 147/84 94 General: Conversant, No Apparent Distress HEENT: Atraumatic, Normocephaly, Mucus Membranes Moist Neck: No JVD, Normal carotid pulses Cardiac: Reg Rate and Rhythm, Normal S1 and S2, No Murmur Lungs: Normal Breath Sounds, No Wheeze, Rales, Rhonchi Neuro: Alert and responsive, No focal deficits noted Abdomen: Soft, Non-Tender Skin: No rashes noted on visualized skin, Other (Right groin site is dry and intact, no hematoma, mild ecchymosis, no bleeding, right PT and DP pulses 2+ palpable) Musculoskeletal: No Chest Wall Tenderness Extremities: No Clubbing, No Cyanosis, No Edema, Normal Pulses Results 04/29/19 00:32 04/29/19 00:32 Lab Results Laboratory Tests 04/27/19 04/27/19 04/27/19 11:56 11:56 18:26 WBC Hgb Hct INR 1.0 Creatinine Est GFR (Non-Af Amer) Magnesium Troponin I 0.03 0.83 H* 04/28/19 04/28/19 04/28/19 00:10 02:25 05:59 WBC Hgb Hct INR Creatinine Est GFR (Non-Af Amer) Magnesium 1.6 Troponin I 3.95 H* 7.17 H* 04/28/19 04/29/19 04/29/19 14:55 00:32 00:32 WBC 12.4 H Hgb 13.9 Hct 41.3 INR Creatinine 0.94 Est GFR (Non-Af Amer) > 60 Magnesium Troponin I 10.62 H* ITS Impressions Chest X-Ray 04/27/19 12:03 IMPRESSION: No acute findings. D/ / 04/27/2019 12:26:24 Christopher Engel MD / christian Interpreting Provider: Christopher Engel MD Echocardiogram 04/27/19 13:37 Impressions: LVEF 40-45%. Moderate global and segmental left ventricular systolic dysfunction. Mild left ventricular diastolic dysfunction. Normal right ventricular structure and function. Mild pulmonic regurgitation. Unable to estimate RVSP due to lack of TR jet. Ordering physician notified via liveBooks. Left Ventricular Wall Motion: Rest Echo Findings The apex, apical inferior, mid inferior, apical anterior, mid anterior, basal anterior, apical septal, mid inferior septal, basal inferior septal, apical lateral, mid anterior lateral, basal anterior lateral, mid anterior septal, mid inferior lateral and basal anterior septal bass were hypokinetic. The basal inferior and basal inferior lateral bass were akinetic. Active Medications Acetaminophen (Tylenol) 650 mg PO Q6HR PRN PRN Reason: Pain Stop: 10/27/19 17:58 Last Admin: 04/27/19 18:15 Dose: 650 mg Documented by: Aspirin (Aspirin Ec) 81 mg PO DAILY [facility] Stop: 10/28/19 09:01 Last Admin: 04/29/19 09:02 Dose: 81 mg Documented by: Atorvastatin Calcium (Lipitor) 40 mg PO DAILY [facility] Stop: 10/28/19 09:01 Last Admin: 04/29/19 09:02 Dose: 40 mg Documented by: Bupropion HCl (Wellbutrin Xl) 300 mg PO DAILY [facility] Stop: 10/28/19 09:01 Last Admin: 04/29/19 09:02 Dose: 300 mg Documented by: Dextrose/Water (Dextrose 50% (Syg)) 25 ml IVP AD PRN PRN Reason: Hypoglycemia Stop: 10/27/19 14:13 Glucagon (Glucagen) 1 mg IM ONCE PRN PRN Reason: Hypoglycemia Stop: 10/27/19 14:13 Glucose (Gluctose) 15 gm PO ONCE PRN PRN Reason: Hypoglycemia Stop: 10/27/19 14:13 Glucose (Gluctose) 30 gm PO ONCE PRN PRN Reason: Hypoglycemia Stop: 10/27/19 14:13 Dextrose (Dextrose 5%) 1,000 mls @ 100 mls/hr IVC .Q10H PRN PRN Reason: HYPOGLYCEMIA Stop: 10/27/19 14:13 Insulin Human Lispro (Humalog) 0 units SQ HS [facility]; Protocol Stop: 10/27/19 21:01 Last Admin: 04/28/19 20:56 Dose: Not Given Documented by: Insulin Human Lispro (Humalog) 0 units SQ TIDAC [facility]; Protocol Stop: 10/27/19 16:31 Last Admin: 04/29/19 09:02 Dose: 2 units Documented by: Labetalol HCl (Labetalol) 10 mg IVP Q4H PRN PRN Reason: Hypertension Stop: 10/27/19 13:39 Lisinopril (Zestril) 5 mg PO DAILY [facility]; Protocol Stop: 10/28/19 09:01 Last Admin: 04/29/19 09:02 Dose: 5 mg Documented by: Metoprolol Succinate (Toprol Xl) 25 mg PO DAILY [facility] Stop: 10/29/19 09:01 Last Admin: 04/29/19 09:02 Dose: 25 mg Documented by: Mirtazapine (Remeron) 30 mg PO DAILY@2100 [facility] Stop: 10/27/19 21:01 Last Admin: 04/28/19 21:06 Dose: 30 mg Documented by: Naloxone HCl (Narcan) 0.4 mg IVP Q2MPRN PRN PRN Reason: SEE COMMENTS Stop: 10/27/19 13:37 Nicotine (Nicoderm) 14 mg TD DAILY [facility]; Protocol Stop: 10/28/19 09:01 Last Admin: 04/29/19 09:03 Dose: 14 mg Documented by: Nitroglycerin (Nitroglycerin) 0.4 mg SL Q5MPRN PRN PRN Reason: Chest Pain Stop: 10/27/19 12:04 Ondansetron HCl (Zofran) 4 mg IVP Q8HR PRN PRN Reason: Nausea And Vomiting Stop: 10/27/19 13:37 Findings: Study Quality * Technically sub-optimal due to clinical status. ECG Findings * Sinus rhythm with BBB. Left Ventricle * LVEF 40-45%. * Normal LV chamber size, wall thickness. * Moderate global and segmental left ventricular systolic dysfunction. * Mild left ventricular diastolic dysfunction. Right Ventricle * Normal right ventricular structure and function. Left Atrium * Normal left atrial size. Right Atrium * Normal right atrial size. Interatrial Septum * Interatrial septum not well evaluated. Aortic Valve * Trileaflet aortic valve with normal function. * No aortic stenosis. * No aortic regurgitation. Mitral Valve * Normal mitral valve structure. * No mitral stenosis. * Trace mitral regurgitation. Tricuspid Valve * Normal tricuspid valve structure. * No tricuspid stenosis. * Trace tricuspid regurgitation. * Unable to estimate RVSP due to lack of TR jet. * Estimated RA pressure is 3 mmHg. Pulmonic Valve * Pulmonic valve is not well visualized. * No pulmonic stenosis. * Mild pulmonic regurgitation. Aorta * Normally sized aortic root. Pericardium * The pericardium appears normal. IVC * The IVC is not dilated. * > 50% respiratory change - Imaging and Cardiology Echo: report reviewed Cardiac cath: report reviewed Consult Discharge Plan - Plan Instructions: Diabetes Mellitus Type 2 in Adults (DC), Chronic Hypertension (DC) Referrals: Jake Moore MD [Primary Care Provider] - 05/07/19 8:15 am Wally Mccoy [Partnered Physician] - (Appointment has been requested. Office will call with date and time of appointment. ) Prescriptions: Isosorbide MONOnitrate (24 HR) [Imdur] 30 mg PO DAILY #30 tab.er.24h Atorvastatin [Lipitor] 80 mg PO HS #60 tablet Nicotine Patch [Nicoderm] 14 mg TD DAILY #14 patch.td24 Nitroglycerin 0.4 mg SL Q5MPRN PRN #90 tab.subl PRN Reason: Chest Pain Metoprolol XL (24 HR) Succ [Toprol Xl] 25 mg PO DAILY #30 tab.er.24h
== END 2019-04-29 12:54 | disposition home or self-care (01) | DRG 190 ==
LOC: 3BNU 11:42 → EMEROOARM 11:42 → SUATTDRO 13:54 → 3BNU 15:17
PROVIDERS: ADMIT Student in an Organized Health Care Education/Training Program; ATTEND Internal Medicine

== ENCOUNTER 2019-05-01 13:36 | Inpatient (IN) ==
--- NOTE | 2019-05-01 14:14 | Emergency Department Note ---
Disposition Clinical Impression: NSTEMI (non-ST elevated myocardial infarction) Disposition: Admitted As Inpatient Condition: Fair Forms: ED Satisfaction Letter Time of Disposition: 15:37 General Adult HPI - General Chief complaint: ED Chest Pain Stated complaint: CP Time Seen by Provider: 05/01/19 13:42 Source: patient Limitations: no limitations Nursing Notes Reviewed: Yes Vital Signs Reviewed: Yes - History of Present Illness HPI Narrative: I did review the previous record. The patient presents with chest pain which started yesterday morning and has been constant since that time. It was present when he woke up. I did review his record of admission for N STEMI with a tropo kenny that was greater than 10 and the patient states his current pain is worse with exertion, minimal dyspnea but no diaphoresis. Radiates to the right arm. The character the pain is sharp with some aching of the right arm. No radiation to the back. Pleuritic aspect. No pain or swelling of the lower extremities. Patient does have several stents in place. Social history: Smoker, no alcohol or drugs Pain Scale: 8 - Related Data Home Medications Medication Instructions Recorded Confirmed Aspirin Enteric Coated [Aspirin EC] 81 mg PO DAILY 04/27/19 05/01/19 Bupropion HCl [Wellbutrin Xl] 300 mg PO DAILY 04/27/19 05/01/19 Lisinopril [Zestril] 5 mg PO DAILY 04/27/19 05/01/19 Metformin HCl [Metformin ER 500 mg PO BIDWM 04/27/19 05/01/19 Osmotic] Mirtazapine [Remeron] 30 mg PO HS 04/27/19 05/01/19 Previous Rx's Medication Instructions Recorded Atorvastatin Calcium [Lipitor] 80 mg PO HS #30 tab 04/29/19 Isosorbide MONOnitrate (24 HR) 30 mg PO DAILY #30 tab.er.24h 04/29/19 [Imdur] Metoprolol XL (24 HR) Succ [Toprol 25 mg PO DAILY #30 tab.er.24h 04/29/19 Xl] Nicotine Patch [Nicoderm] 14 mg TD DAILY #14 patch.td24 04/29/19 Nitroglycerin 0.4 mg SL Q5MPRN PRN #90 tab.subl 04/29/19 Allergies Allergy/AdvReac Type Severity Reaction Status Date / Time No Known Allergies Allergy Verified 04/27/19 14:48 All systems ED: reviewed and negative except as stated. Past Medical History - Past Medical History Medical history: Reports: coronary artery disease, DVT, diabetes, hyperlipidemia, hypertension, myocardial infarction Surgical history: Reports: angioplasty/stent - Social History Smoking Status: Current every day smoker Alcohol use: Reports: none Drug use: Reports: none Physical Exam CONSTITUTIONAL: Well-appearing; well-nourished; A&O X 3, in no apparent distress HEAD: Normocephalic; atraumatic EYES: PERRL, no scleral icterus NOSE: The nose is normal in appearance without rhinorrhea NECK: No JVD or distended neck veins RESP: Normal chest excursion with respiration; breath sounds clear and equal bilaterally; no wheezes, rhonchi, or rales CARD: Regular rhythm, without murmurs, rub or gallop ABD: Non-distended; non-tender, soft, without rigidity, rebound or guarding,no pulsatile mass CHEST: Minimal anterior chest wall pain with palpation SKIN: Normal for age and race; warm and dry without diaphoresis ; no apparent lesions EXTREMITIES: Pulses are 2 plus and equal times 4 extremities, no peripheral edema or calf muscle pain - General Limitations: no limitations General appearance: alert, anxious, in distress Course Vital Signs Temperature 98.0 F 05/01/19 13:37 Pulse Rate 81 05/01/19 13:37 Respiratory Rate 18 05/01/19 13:37 Blood Pressure 136/83 05/01/19 13:37 O2 Sat by Pulse Oximetry 97 05/01/19 13:37 Temperature 98.0 F 05/01/19 13:56 Pulse Rate 82 05/01/19 14:37 Respiratory Rate 18 05/01/19 14:37 Blood Pressure 104/62 05/01/19 14:37 O2 Sat by Pulse Oximetry 95 05/01/19 14:37 Oxygen Delivery Oxygen Delivery Room Air Medical Decision Making - MDM Narrative Medical decision making narrative: I did review the patient's EKG showing normal sinus rhythm with a rate of 73 and there is evidence of new ST elevation inferiorly with some reciprocal changes in aVL and I have paged movement assembler Dr. Selby. This was minimally present on EKG from yesterday but does appear more pronounced today. Based on the patient's history of almost 36 hours of pain I will initially start by calling the movement assembler as opposed to a heart alert. Timing of the EKG is from 2:07 PM. Patient does have ongoing pain. I will order nitroglycerin drip. I will also order one sublingual nitroglycerin 1414 I did speak with Dr. Chris Selby and he did review the EKG from today and from yesterday and recommends medical management with brillinta, low-dose IV heparin, and I will add on one sublingual nitroglycerin and started nitroglycerin drip at 20 and he recommends the patient be admitted to medicine. Labs are pending. 1425 I did speak with the hospitalist accepts the patient for admission. I did inform the disability examiner of the consult/troponin level. Troponin level is 5.6. 1540 - Medical Records Medical records reviewed: Yes I reviewed the patient's medical records. - Lab Data Lab results reviewed: Yes I reviewed the patient's lab results. Result diagrams: 05/01/19 14:32 05/01/19 14:32 Lab Results 05/01/19 05/01/19 05/01/19 Range/Units 14:32 14:32 14:32 WBC 11.2 H (4.3-11.1) K/mcL RBC 3.94 L (4.19-5.50) M/mcL Hgb 13.1 (12.9-16.9) g/dL Hct 39.1 (37.5-50.1) % MCV 99.2 (83.0-100.0) fL MCH 33.2 (28.0-33.3) pg MCHC 33.5 (31.6-35.5) g/dL RDW 13.2 (11.5-14.5) % Plt Count 194 (140-400) K/mcL MPV 9.2 L (9.4-12.4) fL Immature Gran % 0.4 (0-4) % Seg Neutrophils % 65.8 % Lymphocytes % 24.4 % Monocytes % 6.7 % Eosinophils % 2.3 % Basophils % 0.4 % Neutrophils # 7.4 (1.6-8.9) K/mcL Lymphocytes # 2.7 (0.6-4.6) K/mcL Monocytes # 0.8 (0.0-1.3) K/mcL Eosinophils # 0.3 (0.0-0.6) K/mcL Basophils # 0.0 (0.0-0.2) K/mcL PT 11.9 (9.4-12.1) Seconds INR 1.0 APTT 28.7 (26.0-36.0) Seconds Heparin Anti-Xa, Unfract 0.02 L (0.30-0.70) IU/mL Sodium 137 (136-145) mEq/L Potassium 4.3 (3.5-5.1) mEq/L Chloride 105 (98-107) mEq/L Carbon Dioxide 26 (23-29) mEq/L BUN 19 (8-23) mg/dL Creatinine 0.85 (0.70-1.30) mg/dL Est GFR ( Amer) > 60 (> 60) Est GFR (Non-Af Amer) > 60 (> 60) BUN/Creatinine Ratio 22 (6-26) Glucose 149 H (70-105) mg/dL Calculated Osmolality 289 (280-300) Calcium 9.3 (8.6-10.3) mg/dL Troponin I 5.60 H* (< 0.04) ng/mL - Radiology Data Radiology results reviewed: Yes I reviewed the patient's radiology results.
[2019-05-01] MEDS ORDERED: *HR* Ticagrelor 90 MG TABLET PO ONE (14:18)
[2019-05-01] MEDS ORDERED: Nitroglycerin 0.4 MG TAB.SUBL SL STA (14:19)
[2019-05-01] MEDS ORDERED: *HR* Heparin 5,000 UNIT/ML VIAL IVP PRN (14:21)
[2019-05-01] MEDS ORDERED: *HR* Heparin 5,000 UNIT/ML VIAL IVP ONE (14:21)
[2019-05-01 14:43] LABS: Basophils % 0.4 %; Eosinophils # 0.3 K/mcL (0.0-0.6); Eosinophils % 2.3 %; Hematocrit 39.1 % (37.5-50.1); Hemoglobin 13.1 g/dL (12.9-16.9); Immature Granulocytes % 0.4 % (0-4); Lymphocytes # 2.7 K/mcL (0.6-4.6); Lymphocytes % 24.4 %; Mean Corpuscular HGB Conc 33.5 g/dL (31.6-35.5); Mean Corpuscular Hemoglobin 33.2 pg (28.0-33.3); Mean Corpuscular Volume 99.2 fL (83.0-100.0); Mean Platelet Volume 9.2 fL (9.4-12.4); Monocytes # 0.8 K/mcL (0.0-1.3); Monocytes % 6.7 %; Neutrophils # 7.4 K/mcL (1.6-8.9); Platelet Count 194 K/mcL (140-400); Red Blood Count 3.94 M/mcL (4.19-5.50); Red Cell Distribution Width 13.2 % (11.5-14.5); Segmented Neutrophils % 65.8 %; White Blood Count 11.2 K/mcL (4.3-11.1)
[2019-05-01] MEDS: Heparin 25,000 UNIT/250 ML D5W 25,000 UNIT/250 ML IV.SOLN IVC SCH (14:44)
[2019-05-01 14:53] LABS: Prothrombin Time 11.9 Seconds (9.4-12.1)
[2019-05-01 14:56] LABS: Activated Partial Thrombo Time 28.7 Seconds (26.0-36.0); Heparin anti-factor XA UFH 0.02 IU/mL (0.30-0.70)
[2019-05-01 15:04] LABS: BUN/Creatinine Ratio 22 (6-26); Blood Urea Nitrogen 19 mg/dL (8-23); Calcium 9.3 mg/dL (8.6-10.3); Carbon Dioxide 26 mEq/L (23-29); Chloride 105 mEq/L (98-107); Glucose 149 mg/dL (70-105); Osmolality,Calculated 289 (280-300); Potassium 4.3 mEq/L (3.5-5.1); Sodium 137 mEq/L (136-145); eGFR For African Americans > 60 (> 60); eGFR For Non-African Americans > 60 (> 60)
[2019-05-01] MEDS: Nitroglycerin 25 MG/250 ML INFUS..BTL IVC SCH (15:24)
[2019-05-01] MEDS ORDERED: Naloxone 0.4 MG/ML INJ IVP PRN (15:41)
[2019-05-01] MEDS ORDERED: traMADol 50 MG TABLET PO PRN (15:41)
[2019-05-01] MEDS ORDERED: *HR* Dextrose 50 % in Water (Syg) 50 ML SYRINGE IVP PRN (15:46)
[2019-05-01] MEDS ORDERED: D5% in Water 1,000 ML IVC PRN (15:46)
[2019-05-01] MEDS ORDERED: Dextrose Gel 15 GM/37.5 ML TUBE PO PRN ×2 (15:46)
--- NOTE | 2019-05-01 16:08 | Internal Med History&Physical ---
Date of Encounter: 05/01/19 Time of Encounter: 16:02 Internal Medicine - H&P: HPI Chief complaint: Chest pain History of present illness: Mr. Whitney is a 63 year old male history of CAD status post PCI 3 years ago, diabetes, hypertension, PAD, tobacco abuse, who presented to the ED with sudden onset of chest pain. Patient recently admitted on 04/27/19 due to NSTEMI under [facility] and was discharged on optimal medical therapy about 2 days ago. Patient returned to the hospital today due to sudden onset retro-sternal chest pain. He reported he woke up with 8/10 pressure like, retro-sternal chest pain, radiating to his right arm and Jaw, lasting several hours and not alleviated by his home medications. Stated the pain is similar to the one he had a couple of days ago and decided to come to the ED sooner this time. Denies light headedness, palpitations, nausea, Vomiting or shortness of breath. Denies abdominal pain. Past Med Surg Social Fam HX - Past Medical History Medical history: coronary artery disease, DVT, diabetes, hyperlipidemia, hypertension, myocardial infarction - Past Surgical History Surgical History: angioplasty/stent Additional surgical history: IVC - Social History Smoking Status: Current every day smoker Alcohol use: none Drug use: none Internal Medicine - H&P: Meds Aspirin Enteric Coated [Aspirin EC] 81 mg PO DAILY 04/27/19 [History] Bupropion HCl [Wellbutrin Xl] 300 mg PO DAILY 04/27/19 [History] Lisinopril [Zestril] 5 mg PO DAILY 04/27/19 [History] Metformin HCl [Metformin ER Osmotic] 500 mg PO BIDWM 04/27/19 [History] Mirtazapine [Remeron] 30 mg PO HS 04/27/19 [History] Atorvastatin Calcium [Lipitor] 80 mg PO HS #30 tab 04/29/19 [Rx] Isosorbide MONOnitrate (24 HR) [Imdur] 30 mg PO DAILY #30 tab.er.24h 04/29/19 [Rx] Metoprolol XL (24 HR) Succ [Toprol Xl] 25 mg PO DAILY #30 tab.er.24h 04/29/19 [Rx] Nicotine Patch [Nicoderm] 14 mg TD DAILY #14 patch.td24 04/29/19 [Rx] Nitroglycerin 0.4 mg SL Q5MPRN PRN #90 tab.subl 04/29/19 [Rx] Allergy/AdvReac Type Severity Reaction Status Date / Time No Known Allergies Allergy Verified 04/27/19 14:48 All Systems PM: A 10-system review of systems was performed and is negative for pertinent findings except as documented above in the HPI. - Constitutional Constitutional: no chills, no fever(s), no weakness - EENT Eyes: no irritation Nose, mouth and throat: no mouth pain - Cardiovascular Cardiovascular ROS IM: chest pain, no dyspnea on exertion, no edema, no lightheadedness, no orthopnea, no palpitations, no paroxysmal nocturnal dyspnea - Respiratory Respiratory: no cough, no wheezing - Gastrointestinal Gastrointestinal: no abdominal pain, no nausea, no vomiting - Genitourinary Genitourinary ROS male: no dysuria, no nocturia - Integumentary Integumentary IM: no erythema, no non-healing lesions - Neurological Neurological ROS: no headache(s) - Psychiatric Psychiatric: no hopelessness, no irritability - Endocrine Endocrine IM: no cold intolerance, no excessive sweating - Hematologic/Lymphatic Hematologic/Lymphatic: no lymphadenopathy - Allergic/Immunologic Allergic/Immunologic: no GI upset with certain foods - Constitutional Vitals: Temp Pulse Resp BP Pulse Ox 98.0 F 82 24 117/65 97 05/01/19 13:56 05/01/19 15:47 05/01/19 15:47 05/01/19 15:47 05/01/19 15:47 Exam: Vitals: Reviewed General: Alert and oriented x4. In mild distress due to chest pain Skin:Normal color, no rash, no lesions. HEENT:EOM, pupils equal, round and reactive. Cardiovascular: RRR, normal S1 & S2, no rubs, murmurs or gallops. Lungs: decreased breath sounds b/l, no wheezes or crackles. Abdomen: Obese, soft, non-tender, no rigidity. Extremities: No deformity, no edema or tenderness, no joint swelling or clubbing. Neurological: Normal cognition and motor skills. Rest of the physical exam is non contributory Internal Med - H&P Results - Labs CBC & Chem 7: 05/01/19 14:32 05/01/19 14:32 Labs: Short CBC 05/01/19 Range/Units 14:32 WBC 11.2 H (4.3-11.1) K/mcL Hgb 13.1 (12.9-16.9) g/dL Hct 39.1 (37.5-50.1) % Plt Count 194 (140-400) K/mcL Neutrophils # 7.4 (1.6-8.9) K/mcL BMP 05/01/19 14:32 Sodium 137 Potassium 4.3 Chloride 105 Carbon Dioxide 26 BUN 19 Creatinine 0.85 Glucose 149 H Calcium 9.3 Cardiac Enzymes 05/01/19 Range/Units 14:32 Troponin I 5.60 H* (< 0.04) ng/mL - Impressions ITS Impressions Chest X-Ray 05/01/19 13:43 IMPRESSION: No evidence for acute cardiopulmonary process. D/ / Jake Sims MD / Jake Sims MD Interpreting Provider: Jake Sims MD - Diagnostic Studies Chest x-ray Status: image reviewed by me (No acute process identified. ) - Assessment and Plan (1) NSTEMI (non-ST elevated myocardial infarction) Current Visit: Yes Status: Acute Assessment and plan: Patient with recent LCH on 04/28/19. Impressions: There is severe one vessel coronary artery disease. The left ventricle is normal and has mildly Abnormal contractility EF 45% Occluded RCA receives collaterals from [facility] patient presenting today with sudden onset chest pain. Plan Started on Heparin drip Nitroglycerin drip per protocol aspirin 81mg/PO daily Brillinta 90mg/PO BID. Cardiology consulted, recommendations appreciated Serial trops hydrocodone 5/325mg/PO Q8HRs PRN for chest pain Lipid panel Metoprolol home dose telemetry monitoring. Atorvastatin 80mg/PO daily. (2) DVT prophylaxis Current Visit: No Status: Acute Assessment and plan: intermittent pneumatic compressions (3) CAD (coronary artery disease) Current Visit: No Status: Chronic Assessment and plan: plan of care as per problem #1 Qualifiers: Coronary Disease-Associated Artery/Lesion type: [place] artery [place] vs. transplanted heart: [place] heart Associated angina: angina presence unspecified Qualified Code(s): I25.10 - Atherosclerotic heart disease of [place] coronary artery without angina pectoris (4) Diabetes Current Visit: No Status: Chronic Assessment and plan: diabetic diet. started on lispro low dose sliding scale ac. A1c ordered. Qualifiers: Diabetes mellitus type: type 2 Diabetes mellitus rodent exterminator insulin use: without senior care use Diabetes mellitus complication status: with other specified complication Qualified Code(s): E11.69 - Type 2 diabetes mellitus with other specified complication (5) HTN (hypertension) Current Visit: No Status: Chronic Assessment and plan: will resume patient home medications. On metoprolol and lisinopril. Qualifiers: Hypertension type: essential hypertension Qualified Code(s): I10 - Essential (primary) hypertension - Time Spent With Patient Total time spent is greater than 50% in coordination of care (as documented) at patient's floor/unit and/or counseling patient: Greater than 35 minutes (45)
[2019-05-01] MEDS: *HR* HYDROcodone/Acet 5/325 mg TABLET PO PRN (16:26)
[2019-05-01] MEDS: Insulin LISPRO 300 UNITS/3 ML VIAL SQ SCH (17:39)
[2019-05-01] MEDS ORDERED: Morphine Sulfate 2 MG/ML SYRINGE IVP ONE (18:17)
[2019-05-01] MEDS: Acetaminophen 325 MG TABLET PO PRN (20:37)
[2019-05-01] MEDS: Mirtazapine 15 MG TABLET PO SCH (20:38)
[2019-05-01] MEDS: *HR* Heparin 5,000 UNIT/ML VIAL IVP PRN (21:27)
--- NOTE | 2019-05-01 22:07 | Event Note ---
Date of Encounter: 05/01/19 Time of Encounter: 22:04 214: Contacted on critical troponin 6.25, up from 5.60. Ordered STAT EKG and the patient has ST elevations in II, III, and avf, when compared with prior from earlier today timed 1407, these have increased. There are reciprocal depressions in I and aVL. The patient was recently discharged following cath on 04/28/19 which showed mid RCA occlusion due to in-stent thrombus and other vessels free of disease. Evaluated the patient and he continues on heparin drip, nitroglycerin drip and continues having chest pain. Vital signs stable. director of business applications paged. [id number]: Spoke with Dr. Dinero, transcribing operators supervisor who encourages reaching out to paper bag inspector given concern for Acute STEMI. [facility] has paged twice and will attempt to reach his cell phone. [phone]: Discussed case with Dr. Selby, paper bag inspector. I explained that the patient now has worsening ST elevations in 2, 3, aVF with reciprocal changes which is worsened when compared from prior earlier today at 1407. he continues to have active chest pain but vitals remain stable with HR 84, BP 128/60, and satting 93% on room air. I also discussed that these ST elevations were not present prior to the patient's catheterization on 04/28/19. He notes that the patient does have 100% RCA in-stent thrombus which likely continues to cause the patient's symptoms but there are sufficient collaterals. At this point he does not believe patient is in need of acute intervention and he has already viewed the cath from 04/28/19. He encourages continued nitroglycerin, heparin, and can supplement for pain control with morphine. We will continue to monitor the patient here and they will consult to see in the morning for further recommendations.
[2019-05-01] MEDS: Morphine Sulfate 2 MG/ML SYRINGE IVP PRN (23:47)
[2019-05-02 01:25] LABS: Basophils % 0.3 %; Eosinophils # 0.2 K/mcL (0.0-0.6); Eosinophils % 1.3 %; Hematocrit 36.3 % (37.5-50.1); Hemoglobin 12.6 g/dL (12.9-16.9); Immature Granulocytes % 0.3 % (0-4); Lymphocytes # 2.9 K/mcL (0.6-4.6); Lymphocytes % 22.9 %; Mean Corpuscular HGB Conc 34.7 g/dL (31.6-35.5); Mean Corpuscular Hemoglobin 34.3 pg (28.0-33.3); Mean Corpuscular Volume 98.9 fL (83.0-100.0); Mean Platelet Volume 9.5 fL (9.4-12.4); Monocytes # 0.9 K/mcL (0.0-1.3); Monocytes % 7.2 %; Neutrophils # 8.6 K/mcL (1.6-8.9); Platelet Count 180 K/mcL (140-400); Red Blood Count 3.67 M/mcL (4.19-5.50); Red Cell Distribution Width 13.2 % (11.5-14.5); White Blood Count 12.7 K/mcL (4.3-11.1)
[2019-05-02 01:31] LABS: BUN/Creatinine Ratio 20 (6-26); Blood Urea Nitrogen 17 mg/dL (8-23); Calcium 8.8 mg/dL (8.6-10.3); Carbon Dioxide 23 mEq/L (23-29); Chloride 105 mEq/L (98-107); Chol/HDL Ratio 4.2 (0-4.9); Cholesterol 110 mg/dL (< 200); Glucose 138 mg/dL (70-105); HDL Cholesterol 26 mg/dL (40-59); LDL Cholesterol,Calculated 21 mg/dL (0-99); Magnesium 1.5 mg/dL (1.6-2.6); Osmolality,Calculated 286 (280-300); Potassium 3.7 mEq/L (3.5-5.1); Sodium 136 mEq/L (136-145); Triglycerides 316 mg/dL (< 150); eGFR For African Americans > 60 (> 60); eGFR For Non-African Americans > 60 (> 60)
[2019-05-02] MEDS: Acetaminophen 325 MG TABLET PO PRN ×3 (02:22→17:17)
[2019-05-02] MEDS: Nitroglycerin 25 MG/250 ML INFUS..BTL IVC SCH (02:23)
[2019-05-02] MEDS: *HR* Heparin 5,000 UNIT/ML VIAL IVP PRN (04:57)
[2019-05-02] MEDS: Morphine Sulfate 2 MG/ML SYRINGE IVP PRN ×2 (08:21→17:17)
[2019-05-02] MEDS: BuPROPion XL (24 HR) 150 MG TABLET PO SCH (08:22)
[2019-05-02] MEDS: Aspirin Enteric Coated 81 MG Tablet PO SCH (08:22)
--- NOTE | 2019-05-02 08:25 | Cardiology Consult Note ---
<Tyron Kumar - Last Filed: 05/02/19 10:10> Date of Encounter: 05/02/19 Time of Encounter: 08:20 Assessment and Plan (1) NSTEMI (non-ST elevated myocardial infarction) Current Visit: Yes Status: Acute Per Cardiology: Peak trop 6.25. Currently chest pain-free. Cath films reviewed and discussed with Dr. Selby, plan for catheterization today. Discussed and reviewed with Dr. Early. (2) CAD (coronary artery disease) Current Visit: No Status: Chronic Per Cardiology: Recent NSTEMI. LHC: Lesion Findings/Interventions * Left Main Coronary Artery The LMCA is angiographically free of disease. * Left Anterior Descending The LAD is angiographically free of disease. The 1st Diagonal is angiographically free of disease. * Circumflex The Circumflex is angiographically free of disease. The 1st Marginal is angiographically free of disease. * Right Coronary Artery There is a 100% stenosis in the Mid RCA. The lesion has a stent thrombus present and has collaterals which feed from left to right. On asa, Brilinta, statin, BB, ACEI. On Hep gtt and NTG gtt.-- will attempt to wean off as patient has headache. CP free. Will apply NC O2. Qualifiers: Coronary Disease-Associated Artery/Lesion type: [place] artery [place] vs. transplanted heart: [place] heart Associated angina: angina presence unspecified Qualified Code(s): I25.10 - Atherosclerotic heart disease of [place] coronary artery without angina pectoris Discussion w patient/family: The assessment and plan as outlined above was discussed with the patient and/or family members who expressed understanding and agreement. All questions were answered. Thank you for involving us in the care of your patient. Please call with any questions. History of Present Illness Consult date: 05/02/19 Consult reason: Troponin, CP Chief complaint: CP History of present illness: Mr. Whitney is a 63 year old male with a relevant past medical history of DM 2, HTN, HLD, CAD, and nicotine abuse. Recently discharged for non-STEMI a few days ago status post catheterization with no intervention. Cardiology consult for non-STEMI. Patient reports he awakened from sleep with midsternal chest pressure/burning sensation. He reports pain was about 8 out of 10 with radiation to his right jaw and shoulder. He indicates symptoms lasted for a few hours and he came to the ER. He denies any nausea, vomiting, diarrhea. Denies any fever or chills. Reports compliance with medications. He denies any active bleeding or blood loss. Currently chest pain-free. Past Med Surg Social Fam HX - Past Medical History Attestation: Yes The following information was validated with the patient. Source: patient, old records reviewed Medical history: coronary artery disease, DVT, diabetes, hyperlipidemia, hypertension, myocardial infarction - Past Surgical History Surgical History: angioplasty/stent Additional surgical history: IVC - Social History Smoking Status: Former smoker Alcohol use: none Drug use: none - Family History Mother Living Status: Hx Family Cancer: Yes (colon) Hx Family Neurologic Disorders: Yes (stroke) Father Living Status: Unknown Medications and Allergies Aspirin Enteric Coated [Aspirin EC] 81 mg PO DAILY 04/27/19 [History] Bupropion HCl [Wellbutrin Xl] 300 mg PO DAILY 04/27/19 [History] Lisinopril [Zestril] 5 mg PO DAILY 04/27/19 [History] Metformin HCl [Metformin ER Osmotic] 500 mg PO BIDWM 04/27/19 [History] Mirtazapine [Remeron] 30 mg PO HS 04/27/19 [History] Atorvastatin Calcium [Lipitor] 80 mg PO HS #30 tab 04/29/19 [Rx] Isosorbide MONOnitrate (24 HR) [Imdur] 30 mg PO DAILY #30 tab.er.24h 04/29/19 [Rx] Metoprolol XL (24 HR) Succ [Toprol Xl] 25 mg PO DAILY #30 tab.er.24h 04/29/19 [Rx] Nicotine Patch [Nicoderm] 14 mg TD DAILY #14 patch.td24 04/29/19 [Rx] Nitroglycerin 0.4 mg SL Q5MPRN PRN #90 tab.subl 04/29/19 [Rx] Allergy/AdvReac Type Severity Reaction Status Date / Time No Known Allergies Allergy Verified 05/02/19 09:48 All Systems Review: The remainder of the systems were reviewed and are negative - Cardiovascular Cardiovascular: as per HPI, chest pain at rest, radiating jaw, neck or arm pain Physical Examination Vital Signs, Last 4 Hours Temp Pulse Resp BP Pulse Ox 05/02/19 08:05 98.4 F 80 18 104/57 94 05/02/19 07:17 93 05/02/19 07:00 82 123/83 05/02/19 06:00 77 127/75 05/02/19 05:00 81 116/70 General: Conversant, No Apparent Distress HEENT: Atraumatic, Normocephaly, Mucus Membranes Moist Neck: No JVD, Normal carotid pulses Cardiac: Reg Rate and Rhythm, Normal S1 and S2, No Murmur Lungs: Normal Breath Sounds, No Wheeze, Rales, Rhonchi Neuro: Alert and responsive, No focal deficits noted Abdomen: Soft, Non-Tender Skin: No rashes noted on visualized skin Musculoskeletal: No Chest Wall Tenderness Extremities: No Clubbing, No Cyanosis, No Edema, Normal Pulses Results 05/02/19 00:45 05/02/19 00:45 Lab Results Laboratory Tests 04/28/19 05/01/19 05/01/19 14:55 14:32 14:32 Hgb Hct INR 1.0 Creatinine Est GFR (Non-Af Amer) Troponin I 10.62 H* 5.60 H* LDL Cholesterol, Calc 05/01/19 05/02/19 05/02/19 20:53 00:45 00:45 Hgb 12.6 L Hct 36.3 L INR Creatinine Est GFR (Non-Af Amer) Troponin I 6.25 H* 6.08 H* LDL Cholesterol, Calc 05/02/19 00:45 Hgb Hct INR Creatinine 0.83 Est GFR (Non-Af Amer) > 60 Troponin I LDL Cholesterol, Calc 21 ITS Impressions Chest X-Ray 05/01/19 13:43 IMPRESSION: No evidence for acute cardiopulmonary process. D/ / Jake Sims MD / Jake Sims MD Interpreting Provider: Jake Sims MD Active Medications Acetaminophen (Tylenol) 650 mg PO Q4HR PRN PRN Reason: Pain Stop: 10/31/19 20:26 Last Admin: 05/02/19 08:21 Dose: 650 mg Documented by: Hydrocodone Bitart/Acetaminophen ([place] 5-325 Mg) 1 tab PO Q8HR PRN PRN Reason: Chest Pain Stop: 10/31/19 16:01 Last Admin: 05/01/19 16:26 Dose: 1 tab Documented by: Aspirin (Aspirin Ec) 81 mg PO DAILY [facility] Stop: 11/01/19 09:01 Last Admin: 05/02/19 08:22 Dose: 81 mg Documented by: Atorvastatin Calcium (Lipitor) 80 mg PO HS [facility] Stop: 10/31/19 21:01 Last Admin: 05/01/19 20:38 Dose: 80 mg Documented by: Bupropion HCl (Wellbutrin Xl) 300 mg PO DAILY [facility] Stop: 11/01/19 09:01 Last Admin: 05/02/19 08:22 Dose: 300 mg Documented by: Dextrose/Water (Dextrose 50% (Syg)) 25 ml IVP AD PRN PRN Reason: Hypoglycemia Stop: 10/31/19 15:47 Glucagon (Glucagen) 1 mg IM ONCE PRN PRN Reason: Hypoglycemia Stop: 10/31/19 15:47 Glucose (Gluctose) 15 gm PO ONCE PRN PRN Reason: Hypoglycemia Stop: 10/31/19 15:47 Glucose (Gluctose) 30 gm PO ONCE PRN PRN Reason: Hypoglycemia Stop: 10/31/19 15:47 Heparin Sodium (Porcine) (Heparin) 4,000 unit IVP Q6HR PRN PRN Reason: SEE COMMENTS Stop: 10/31/19 14:22 Heparin Sodium (Porcine) (Heparin) 2,000 unit IVP Q6H PRN PRN Reason: SEE COMMENTS Stop: 10/31/19 14:22 Last Admin: 05/02/19 04:57 Dose: 2,000 unit Documented by: Heparin Sodium/Dextrose (Heparin 25,000 Unit/250 Ml D5w) 25,000 unit in 250 mls @ 10.007 mls/hr IVC .Q24H [facility]; Protocol Stop: 10/31/19 14:31 Last Titration: 05/02/19 04:54 Dose: 13.77 unit/kg/hr, 14.1 mls/hr Documented by: Nitroglycerin (Nitroglycerin Premix 25 Mg/250 Ml) 25 mg in 250 mls @ 12 mls/hr IVC .[id number] [facility]; Protocol Stop: 10/31/19 14:31 Last Admin: 05/02/19 02:23 Dose: 40 mcg/min, 24 mls/hr Documented by: Dextrose (Dextrose 5%) 1,000 mls @ 100 mls/hr IVC .Q10H PRN PRN Reason: HYPOGLYCEMIA Stop: 10/31/19 15:47 Magnesium Sulfate 1 gm/ Sodium (Chloride) 102 mls @ 100 mls/hr IVPB ONCE ONE Stop: 05/02/19 08:41 Insulin Human Lispro (Humalog) 0 units SQ TIDAC [facility]; Protocol Stop: 10/31/19 16:31 Last Admin: 05/01/19 17:39 Dose: Not Given Documented by: Lisinopril (Zestril) 5 mg PO DAILY [facility]; Protocol Stop: 11/01/19 09:01 Metoprolol Succinate (Toprol Xl) 12.5 mg PO DAILY [facility] Stop: 11/01/19 15:45 Mirtazapine (Remeron) 30 mg PO HS [facility] Stop: 10/31/19 21:01 Last Admin: 05/01/19 20:38 Dose: 30 mg Documented by: Morphine Sulfate (Morphine) 2 mg IVP Q4HR PRN; Protocol PRN Reason: Chest Pain Stop: 10/31/19 23:41 Last Admin: 05/02/19 08:21 Dose: 2 mg Documented by: Naloxone HCl (Narcan) 0.4 mg IVP Q2MPRN PRN PRN Reason: SEE COMMENTS Stop: 10/31/19 15:42 Ticagrelor (Brilinta) 90 mg PO BID [facility] Stop: 11/01/19 10:01 - Imaging and Cardiology Echo: report reviewed Cardiac cath: report reviewed - EKG Interpretation EKG results cardiology: personally reviewed Consult Discharge Plan - Plan Referrals: Jake Moore MD [Primary Care Provider] - 05/09/19 8:15 am Galen Early MD [Non-Partnered Physician] - 05/10/19 11:40 am <Galen Early - Last Filed: 05/02/19 14:16> Date of Encounter: 05/02/19 - Attending Attestation I have personally performed a face to face evaluation on this patient. I have reviewed and agree with the documented findings and care plan as documented by the DOOR FITTER. History and Exam by me shows: 63-year-old pleasant gentleman with history of CAD, PAD, tobacco abuse, presenting with NSTEMI AAOX3 in NAD at the bedside Hemodynamically stable Cardiopulmonary exam revealed S1, S2, no murmur; clear lungs Rhythm reviewed - sinus rhythm, inferior Q waves Echo showed EF of 40-45% with segmental wall motion abnormalities, no significant valvular heart disease Impression/plan: 1. NSTEMI for cardiac catheterization today 2. CAD- continue aspirin, Brillinta, GENA inhibitor and beta wayne, high intensity, statin 3. Ischemic cardiomyopathy 4. Type 2 diabetes mellitus not on long-term insulin, circulatory complication. Hold metformin for 48 hours after cardiac catheterization Thanks for the consult, please call with questions. Galen Early MD FAC Assessment and Plan Discussion w patient/family: The assessment and plan as outlined above was discussed with the patient and/or family members who expressed understanding and agreement. All questions were answered. Thank you for involving us in the care of your patient. Please call with any questions. History of Present Illness History of present illness: Mr. Whitney is a 63 year old male All Systems Review: The remainder of the systems were reviewed and are negative Physical Examination Vital Signs, Last 4 Hours Temp Pulse Resp BP Pulse Ox 05/02/19 11:52 98.2 F 90 18 123/80 97 Results 05/02/19 00:45 05/02/19 00:45 Lab Results 05/01/19 05/01/19 05/01/19 14:32 14:32 14:32 WBC 11.2 H Hgb 13.1 Hct 39.1 Plt Count 194 INR 1.0 APTT 28.7 Sodium 137 Potassium 4.3 Chloride 105 Carbon Dioxide 26 BUN 19 Creatinine 0.85 Glucose 149 H Calcium 9.3 Magnesium Troponin I 5.60 H* 05/01/19 05/02/19 05/02/19 20:53 00:45 00:45 WBC 12.7 H Hgb 12.6 L Hct 36.3 L Plt Count 180 INR APTT Sodium Potassium Chloride Carbon Dioxide BUN Creatinine Glucose Calcium Magnesium Troponin I 6.25 H* 6.08 H* 05/02/19 00:45 WBC Hgb Hct Plt Count INR APTT Sodium 136 Potassium 3.7 Chloride 105 Carbon Dioxide 23 BUN 17 Creatinine 0.83 Glucose 138 H Calcium 8.8 Magnesium 1.5 L Troponin I
[2019-05-02] MEDS: *HR* Ticagrelor 90 MG TABLET PO SCH ×2 (08:30→19:47)
[2019-05-02] MEDS: Insulin LISPRO 300 UNITS/3 ML VIAL SQ SCH ×3 (08:31→17:19)
[2019-05-02] MEDS: Heparin 25,000 UNIT/250 ML D5W 25,000 UNIT/250 ML IV.SOLN IVC SCH (08:34)
--- NOTE | 2019-05-02 09:52 | Pre-Sedation Evaluation ---
Pre-sedation evaluation - Pre-sedation checklist Date of procedure: 05/02/19 Procedure: [facility] Recent Vitals: Last Vital Signs Temp 98.4 F 05/02/19 08:05 Pulse 80 05/02/19 08:05 Resp 18 05/02/19 08:05 BP 104/57 05/02/19 08:05 Pulse Ox 94 05/02/19 08:05 H&P (including ROS) documented in medical record: Yes Previous reaction to sedatives/anesthetics: No Dietary Status: No solid food in preceding 4 hrs and no liquid in preceding 2 hrs ASA Classification *see protocol: CLASS II-Mild systemic disease Plan of Care: Pt appropriate candidate for procedure/moderate/conscious sedation, Risks/benefits of procedure/sedation discussed w/ patient/family Cardiac Registry (Cardio Only) - Functional Capacity Functional Capacity: >=4 METS with symptoms - Clincal Frailty Scale Clinical Frailty Scale: Managing Well
[2019-05-02 10:05] LABS: Estimated Average Glucose 134 mg/dl
[2019-05-02] MEDS: *HR* HYDROcodone/Acet 5/325 mg TABLET PO PRN (11:53)
[2019-05-02] MEDS ORDERED: Heparin 1,000 UNITS/500 mL 500 ML ONE (12:19)
[2019-05-02] MEDS ORDERED: 0.9 % Sodium Chloride 1,000 ML ONE ×2 (12:19→12:52)
[2019-05-02] MEDS ORDERED: ISOVUE-370 200 ML INFUS..BTL ONE ×2 (12:19→13:52)
[2019-05-02] MEDS ORDERED: *HR* Heparin 10,000 UNIT/10 ML VIAL ONE (12:19)
[2019-05-02] MEDS ORDERED: Nitroglycerin 1,000 MCG/10 ML VIAL IV ONE (12:19)
[2019-05-02] MEDS ORDERED: *HR* FentaNYL (PF) 100 MCG/2 ML VIAL ONE ×2 (13:04→13:57)
[2019-05-02] MEDS ORDERED: *HR* Midazolam HCl 2 MG/2 ML VIAL ONE (13:04)
[2019-05-02] MEDS ORDERED: Verapamil 5 MG/2 ML VIAL ONE (13:05)
--- NOTE | 2019-05-02 13:38 | Electrocardiograph Report ---
[place] [facility] Test Date: 2019-05-01 Pat Name: Sujit Whitney Department: [id number] Room: 2N07 Gender: M Pulmonology Technician: : [id number] Requested By: Dhiraj Gillespie Order Number: [id number] Reading MD: Connor Landaverde Measurements Intervals [place] Rate: 73 P: 58 OK: 142 QRS: -24 QRSD: 102 T: 6 QT: 389 QTc: 429 Interpretive Statements Sinus rhythm Inferior infarct, age indeterminate Electronically Signed On 05-02-2019 13:37:21 EDT by Connor Landaverde
[2019-05-02] MEDS ORDERED: Tirofiban 12.5 MG/250ML 12.5 MG/250 ML BAG ONE (13:58)
--- NOTE | 2019-05-02 14:08 | Internal Med Progress Note ---
Hospitalist Progress Note - Encounter Date of Encounter: 05/02/19 Time of Encounter: 14:06 - Subjective Interval History: I have seen and evaluated the patient at bedside. patient reports the chest pain has stopped. reports having a headache. denies nausea, vomiting or abdominal pain. - Exam Vitals: Temp Pulse Resp BP Pulse Ox 98.2 F 90 18 123/80 97 05/02/19 11:52 05/02/19 11:52 05/02/19 11:52 05/02/19 11:52 05/02/19 11:52 Exam: Vitals: Reviewed General: Alert and oriented x4. In mild distress due to headache. Cardiovascular: RRR, normal S1 & S2, no rubs, murmurs or gallops. Lungs: CTA b/l, no wheezes or crackles. Abdomen: Obese, soft, non-tender, no rigidity. Extremities: No edema. Neurological: Normal cognition and motor skills. Rest of the physical exam is non contributory - Assessment and Plan (1) NSTEMI (non-ST elevated myocardial infarction) Current Visit: Yes Status: Acute Assessment and Plan: EKG changes overnight, reported as ST elevation in 2, 3, aVF. Plan - patient scheduled for [facility] today - On a heparin and nitro drip - consider Morphine for chest pain as patient is having headache with nitro - On a statin a bb. - continue aspirin and ticagrelol - cardiology recommendations appreciated (2) CAD (coronary artery disease) Current Visit: No Status: Chronic Assessment and Plan: plan of care as above (3) Diabetes Current Visit: No Status: Chronic Assessment and Plan: Blood sugar is well controlled, lispro low-dose sliding scale. Carb controlled diet. (4) HTN (hypertension) Current Visit: No Status: Chronic Assessment and Plan: Blood pressures well controlled on lisinopril. And metoprolol. DVT Prophylaxis: On heparin - Summary of Assessment and Plan Summary of Assessment and Plan: Patient to remain in the hospital due to NSTEMI. scheduled for [facility] today. - Time Spent with Patient Total time spent is greater than 50% in coordination of care (as documented) at patient's floor/unit and/or counseling patient: Greater than 35 minutes (40) Plan of Care Discussed with: patient (and the nurse.) Internal Medicine: Result - Labs CBC & Chem 7: 05/02/19 00:45 05/02/19 00:45 Labs: Short CBC 05/01/19 05/02/19 Range/Units 14:32 00:45 WBC 11.2 H 12.7 H (4.3-11.1) K/mcL Hgb 13.1 12.6 L (12.9-16.9) g/dL Hct 39.1 36.3 L (37.5-50.1) % Plt Count 194 180 (140-400) K/mcL Neutrophils # 7.4 8.6 (1.6-8.9) K/mcL BMP 05/01/19 05/02/19 14:32 00:45 Sodium 137 136 Potassium 4.3 3.7 Chloride 105 105 Carbon Dioxide 26 23 BUN 19 17 Creatinine 0.85 0.83 Glucose 149 H 138 H Calcium 9.3 8.8 Cardiac Enzymes 05/01/19 05/01/19 05/02/19 Range/Units 14:32 20:53 00:45 Troponin I 5.60 H* 6.25 H* 6.08 H* (< 0.04) ng/mL - ABG Interpretation ABG results: PT/INR, D-dimer PT 11.9 Seconds (9.4-12.1) 05/01/19 14:32 - Impressions Impressions Chest X-Ray 05/01/19 13:43 IMPRESSION: No evidence for acute cardiopulmonary process. D/ / Jake Sims MD / Jake Sims MD Interpreting Provider: Jake Sims MD Consult Discharge Plan - Plan Referrals: Jake Moore MD [Primary Care Provider] - 05/09/19 8:15 am Galen Early MD [Non-Partnered Physician] - 05/10/19 11:40 am (2) CAD (coronary artery disease) Qualifiers: Coronary Disease-Associated Artery/Lesion type: [place] artery [place] vs. transplanted heart: [place] heart Associated angina: angina presence unspecified Qualified Code(s): I25.10 - Atherosclerotic heart disease of [place] coronary artery without angina pectoris (3) Diabetes Qualifiers: Diabetes mellitus type: type 2 Diabetes mellitus halfway insulin use: w ithout intermediate project manager use Diabetes mellitus complication status: with other spe cified complication Qualified Code(s): E11.69 - Type 2 diabetes mellitus with other specified complication (4) HTN (hypertension) Qualifiers: Hypertension type: essential hypertension Qualified Code(s): I10 - Essential (primary) hypertension
[2019-05-02] MEDS ORDERED: Tirofiban 12.5 MG/250ML 12.5 MG/250 ML BAG IVC SCH (15:00)
[2019-05-02] MEDS ORDERED: Ondansetron 4 MG/2 ML VIAL IVP PRN (15:02)
--- NOTE | 2019-05-02 15:08 | Event Note ---
Date of Encounter: 05/02/19 Time of Encounter: 15:00 - Cardiology Event Note PCI prelim RCA and R PDA 100% thrombosis sp complex PCI with TRISTIN x 4 overlapping with pentecostal of DARIN 3 flow. Aspirin, Brilinta, and Aggrastat overnight. EF 50% with severe inferior hypokinesis
--- NOTE | 2019-05-02 15:20 | Invasive Diagnostic Lab Proc ---
Name: Sujit Whitney Date of Study: 05/02/2019 Date: 1955 Ht: 70.0in Medical Record#: [id number] Age: 63 Wt: 222.45lb Gender: Male BSA: 2.18 Order #: [id number] BMI: 31.92 Physicians Procedure Physician: Chris Selby MD, [facility] Referring MD: Referring MD: Staff Name Position Time In Roseann Patricia RN Monitor 01:02 PM Maliha Collins RT (R) Scrub 01:02 PM Sloan Ortiz RN Regional Director Of Finance 01:02 PM Nancie Ibarra RT (R) Scrub 01:02 PM Indications Indication Non-Stemi Procedures Performed Procedure L HRT ARTERY/VENTRICLE ANGIO PRQ CARD BM STENT W/ANGIO 1 VSL PRQ CARD STENT W/ANGIO ADDL Pre-Procedure Checklist Informed consent is complete signed and on chart. H&P is on chart. ID band is on and ID verified with patient. Patient NPO for procedure The procedure was described for the patient and questions were answered. Blood Pressure: 104/57 ECG is on chart. Rhythm: NSR Plan of Care Patient will tolerate the procedure without complications. Adequate level of comfort will be maintained. Hemodynamics will remain stable Patient will recover from procedure without complications. Respiratory function will be maintained. Cardiac rhythm will remain stable. Patient temperature will be maintained. Patient and/or family have verbalized understanding of the procedure. Patient Education Chief Complaint/Reason for Test: Cardiac Cath Developmental Category: Adult (18-64 years) Developmentally Appropriate for Age: Yes Learning Barriers: None Education Needs: Procedure Education Method: Verbal Information Taught: Cardiac Cath Educational Evaluation: Able to repeat information Intravenous Access Time IV Size Location DC'd Fluid/Drip Rate Units RN 20g 1 /" Patent On Arrival Lt Arm 0.9NaCl 25 ml/hr Allergies No Known Allergies Vital Signs Time BP (mmHg) HR (bpm) O2 Sat. RR (bpm) LOC 01:05 PM / % 5 = Fully awake and oriented or at pre-proc level 01:40 PM 155 / 94 95 96 % 15 01:45 PM 166 / 100 95 95 % 19 01:50 PM 163 / 103 97 95 % 14 01:55 PM 177 / 106 98 97 % 10 02:00 PM 173 / 108 103 96 % 12 02:05 PM 171 / 97 100 97 % 19 02:10 PM 181 / 100 106 97 % 17 02:15 PM 157 / 93 97 96 % 17 02:20 PM 156 / 100 101 97 % 13 02:25 PM 161 / 94 98 99 % 17 01:06 PM 147 / 85 87 97 % 17 01:10 PM 147 / 81 96 98 % 19 01:15 PM 149 / 96 91 93 % 21 01:20 PM 138 / 82 94 95 % 17 01:25 PM 146 / 89 87 93 % 17 01:30 PM 147 / 94 93 94 % 15 01:35 PM 160 / 88 94 94 % 19 02:34 PM 161 / 141 115 96 % 28 Procedural Medications Time Medication Dose Units Method Given By 01:05 PM Oxygen 2 L/min nasal cannula Sloan Ortiz RN 01:06 PM Versed 2 mg Intravenous Sloan Ortiz RN 01:06 PM Fentanyl 50 mcg Intravenous Sloan Ortiz RN 01:17 PM Lidocaine 2% 0.5 ml Subcutaneous Chris Selby MD, FACC 01:18 PM Heparin 2000 units Nitroglycerin 200 mcg Verapamil 2.5 mg Intraarterial Chris Selby MD, FACC 01:33 PM Fentanyl 25 mcg Intravenous Sloan Ortiz RN 01:45 PM Fentanyl 25 mcg Intravenous Sloan Ortiz RN 01:52 PM Hydralazine 20 mg Intravenous Sloan Ortiz RN 01:58 PM Fentanyl 25 mcg Intravenous Sloan Ortiz RN 01:59 PM Aggrastat Bolus: 50 ml Intravenous Sloan Ortiz RN 02:00 PM Aggrastat 12.5mg/250ml 18 ml Intravenous Sloan Ortiz RN 02:12 PM Nitroglycerin 200 mcg Intracoronary Chris Selby MD 02:34 PM Hydralazine 20 mg Intravenous Sloan Ortiz RN ASA Classification: CLASS II- Mild systemic disease (i.e. well-controlled diabetes, hypertension, asthma, cigarette smoking) [place] Score Preprocedure Postprocedure Activity 2- Moves 4 extremities sustained head lift Activity 2- Moves 4 extremities sustained head lift Circulation 2- SBP +/= 20 points of pre-anesthetic level Circulation 2- SBP +/= 20 points of pre-anesthetic level Consciousness 2- Awake and alert oriented x 3 Consciousness 2- Awake and alert oriented x 3 O2 Saturation 2- Able to maintain O2 satruation of 92% on room air O2 Saturation 2- Able to maintain O2 satruation of 92% on room air Respiratory 2- Able to deep breathe and cough well Respiratory 2- Able to deep breathe and cough well Total Score 10 Total Score 10 Contrast Agent: Isovue Diagnostic Contrast: 188 ml Total Contrast: 188 ml Fluoro Dose: 87 mGy Activated Clotting Time Time Seconds to Clot 01:32 PM 260 Procedure Log Time Note Enter By 12:59 PM 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 2 at 12:59 [facility] 01:02 PM Nancie Ibarra RT (R) Position: Scrub Time in: 13: [facility] :02 PM Roseann Patricia RN Position: Monitor Time in: :[facility] :02 PM Maliha Collins RT (R) Position: Scrub Time in: 13: [facility] 01:02 PM Patient charges- Angio tray pack, Navilyst 3mm J, Pulse Oximetry and ACIST tubing and transducer kmavis : PM Case Delayed No kmavis : PM Sloan Ortiz RN Position: Regional Director Of Finance Time in: : [place] :04 PM Case Start :04 PM Vitals capture started with the following parameters, Patient=Adult, Interval=5 min, Initial Otgcqgmb=583 mmHg, Deflation Rate=3 mmHg, Cuff placed on Right Arm : PM Recorded ECG: HR=86 Condition=Condition 1 :04 PM Hair removed from procedure site in procedure lab using clippers. Right wrist and Right groin prepped with Chloraprep by Maliha Collins (R), then patient was draped. Skin intact. [facility] :04 PM Physician arrived 13: [facility] : PM Meet and greet completed [facility] : PM Sign in performed according to hospital policy. Informed consent was obtained. [facility] :04 PM Procedure start :[facility] :05 PM Time: 13:05 Oxygen on at 2 L/min per nasal cannula by Sloan Ortiz RN [facility] :05 PM Time: 13:05 Patient comfortable and pain free: Yes [place] :05 PM Time: 13:05LOC: 5 = Fully awake and oriented or at pre-proc [place] 01:06 PM HR=87 bpm, XRMJ=154/85 mmhg, SpO2=97.0 %, Resp=17 B/min 01:06 PM Time: 13:06 Versed 2 mg Intravenous Given by Sloan Ortiz RN kmavis 01:06 PM Time: 13:06 Fentanyl 50 mcg Intravenous Given by Sloan Ortiz RN kmavis 01:08 PM ASA Class CLASS II- Mild systemic disease (i.e. well-controlled diabetes, hypertension, asthma, cigarette smoking) kmavis 01:10 PM HR=96 bpm, YVJG=150/81 mmhg, SpO2=98.0 %, Resp=19 B/min 01:15 PM HR=91 bpm, DGFB=901/96 mmhg, SpO2=93.0 %, Resp=21 B/min 01:17 PM Time out was performed according to hospital policy. Conscious sedation and anesthesia was achieved (see medication log with in this report above) kmavis :17 PM Time: 13:17 0.5 ml Lidocaine 2% to right radial Subcutaneous Given by Chris Selby MD, [facility] kmavis :18 PM Access obtained by percutaneous puncture. 5Fr 10cm Terumo Glidesheath sheath placed in right Radial artery. [id number] kmavis :18 PM Time: 13:18 Patient given 2000 units Heparin, 200 mcg Nitroglycerin, and 2.5 mg Verapamil Intraarterial by Chris Selby MD, [facility]. This is given to reduce risk of vessel spasm and thrombosis. kmavis :19 PM 5Fr TIG catheter inserted over the wire [facility] kmavis :19 PM 0.035 260cm Navilyst 3mmJ wire [id number] kmavis :20 PM Pressure channel 1 zeroed. 01:20 PM HR=94 bpm, UCNG=135/82 mmhg, SpO2=95.0 %, Resp=17 B/min 01:21 PM LCA angiography performed in multiple views. kmavis :21 PM Recorded Pressure: Ao, HR=93, Condition=Condition 1 (Aorta) Ao 127/96/110 01:22 PM Catheter removed kmavis :23 PM 5Fr FL 4 catheter inserted over the wire [facility] kmavis :24 PM LCA angiography performed in multiple views. kmavis 01:24 PM Catheter removed kmavis 01:25 PM HR=87 bpm, HZCK=883/89 mmhg, SpO2=93.0 %, Resp=17 B/min 01:25 PM 5Fr Pigtail catheter inserted over the wire [facility] kmavis 01:26 PM Catheter crossed the aortic valve and was selectively placed in the left ventricle. Pressures recorded on pullback for left heart catheterization. kmavis 01:27 PM Bolus angiogram of left Ventricle complete: 10 ml/sec for a total of 20 mls kmavis 01:27 PM Recorded Pressure: LV, HR=97, Condition=Condition 1 (Left Ventricle) LV 139/70/83 01:27 PM Recorded Pressure: LV, Ao, HR=94, Condition=Condition 1 (Left Ventricle) LV 146/16/32, (Aorta) Ao 143/18/73 01:27 PM Recorded Pressure: LV, Ao, HR=94, Condition=Condition 1 (Left Ventricle) LV 153/20/31, (Aorta) Ao 152/87/118 01:28 PM Catheter removed kmavis 01:30 PM 6Fr JR 4 Cordis guide catheter was used to cannulate the PCI vessel successfully. reused? No kmavis 01:30 PM .014 PT Graphix 182cm guide wire across target lesion- successful. reused? No kmavis 01:30 PM Inflation device was opened. kmavis 01:30 PM RCA angiography performed in multiple views. kmavis 01:30 PM HR=93 bpm, EOGD=649/94 mmhg, SpO2=94.0 %, Resp=15 B/min 01:31 PM Recorded Pressure: Ao, XY=183, Condition=Condition 1 (Aorta) Ao 147/96/120 01:32 PM At 13:32 the ACT was 260 seconds. kmavis 01:33 PM Time: 13:33 Fentanyl 25 mcg Intravenous Given by Sloan Ortiz RN kmavis 01:34 PM Lesion found in Mid RCA. Pre Stenosis: 100 Pre DARIN Flow: 2: Partial Flow/Perfusion (> 1 but < 3) kmavis 01:34 PM Right Coronary, Right Posterior Descending Arteries with Right Posterolateral and Acute Marginal branches with 100 % stenosis. If graft is supplying this area, 0 % stenosis kmavis 01:34 PM PCI Status Urgent kmavis 01:34 PM PCI lesion in Mid RCA. Pre Stenosis: 100 Pre DARIN Flow: kmavis 01:35 PM PCI lesion in Mid RCA. kmavis 01:35 PM 2.25 mm x 17 mm Mozec Rx balloon across target lesion- successful. reused? No kmavis 01:35 PM HR=94 bpm, OOVV=591/88 mmhg, SpO2=94.0 %, Resp=19 B/min 01:36 PM Balloon inflated @ 10 bryan for 11 seconds kmavis 01:36 PM Balloon inflated @ 10 bryan for 8 seconds kmavis 01:37 PM Balloon inflated @ 10 bryan for 10 seconds kmavis 01:37 PM Balloon inflated @ 10 bryan for 10 seconds kmavis 01:37 PM Balloon inflated @ 10 bryan for 10 seconds kmavis 01:38 PM Balloon inflated @ 10 bryan for 10 seconds kmavis 01:39 PM Recorded Pressure: Ao, HR=97, Condition=Condition 1 (Aorta) Ao 163/117/139 01:39 PM Balloon inflated @ 10 bryan for 10 seconds kmavis 01:39 PM Balloon inflated @ 10 bryan for 10 seconds kmavis 01:40 PM Balloon inflated @ 16 bryan for 12 seconds kmavis 01:40 PM HR=95 bpm, OZKD=695/94 mmhg, SpO2=96.0 %, Resp=15 B/min 01:40 PM Balloon inflated @ 16 bryan for 11 seconds kmavis 01:41 PM Balloon inflated @ 16 bryan for 8 seconds kmavis 01:43 PM Balloon catheter removed intact. kmavis 01:44 PM Physician reviewing films kmavis 01:45 PM 2.5mm x 38mm Synergy drug-eluting stent across target lesion- successful Lot #[id number] kmavis 01:45 PM HR=95 bpm, UVZH=329/100 mmhg, SpO2=95.0 %, Resp=19 B/min 01:46 PM Time: 13:45 Fentanyl 25 mcg Intravenous Given by Sloan Ortiz RN kmavis 01:47 PM Stent deployed @ 11 bryan for 16 seconds kmavis 01:47 PM Recorded Pressure: Ao, HR=98, Condition=Condition 1 (Aorta) Ao 162/117/138 01:48 PM Stent balloon reinflated @ 18 bryan for 20 seconds kmavis 01:48 PM Stent balloon reinflated @ 18 bryan for 12 seconds kmavis 01:49 PM Stent delivery system removed intact. kmavis 01:50 PM HR=97 bpm, KJUD=947/103 mmhg, SpO2=95.0 %, Resp=14 B/min 01:51 PM 3.0mm x 38mm Synergy drug-eluting stent across target lesion- successful Lot #[id number] kmavis 01:52 PM Time: 13:52 Hydralazine 20 mg Intravenous Given by Sloan Ortiz RN kmavis 01:53 PM Stent delivery system removed intact, undeployed. kmavis 01:53 PM .014 PT Graphix 182cm guide wire across target lesion- successful. reused? No. Second wire used for extra support. kmavis 01:55 PM HR=98 bpm, AGYE=808/106 mmhg, SpO2=97.0 %, Resp=10 B/min 01:56 PM 3.0mm x 38mm synergy drug eluting stent re-inserted. kmavis 01:56 PM Stent deployed @ 16 bryan for 29 seconds kmavis 01:57 PM Stent balloon reinflated @ 14 bryan for 10 seconds kmavis 01:58 PM Stent balloon reinflated @ 16 bryan for 11 seconds kmavis 01:58 PM Time: 13:58 Fentanyl 25 mcg Intravenous Given by Sloan Ortiz RN kmavis 01:59 PM Stent delivery system removed intact. kmavis 02:00 PM Time: 13:59 Aggrastat Bolus: 50 ml Intravenous Given by Sloan Ortiz RN [facility] kmavis 02:00 PM Time: 14:00 Aggrastat 12.5mg/250ml 18 ml Intravenous Given by Sloan Ortiz RN Shipman pump kmavis 02:00 PM IY=101 bpm, FXXP=171/108 mmhg, SpO2=96.0 %, Resp=12 B/min 02:00 PM 3.5mm x 20mm Synergy drug-eluting stent across target lesion- successful Lot #[id number] kmavis 02:01 PM Stent deployed @ 16 bryan for 19 seconds kmavis 02:02 PM Stent balloon reinflated @ 16 bryan for 17 seconds kmavis 02:05 PM Stent delivery system removed intact. kmavis 02:05 PM DM=024 bpm, FXDA=676/97 mmhg, SpO2=97.0 %, Resp=19 B/min 02:06 PM 2.25mm x 16mm Synergy drug-eluting stent across target lesion- successful Lot #[id number] kmavis 02:09 PM Stent deployed @ 12 bryan for 11 seconds kmavis 02:10 PM Stent balloon reinflated @ 14 bryan for 10 seconds kmavis 02:10 PM Stent balloon reinflated @ 18 bryan for 9 seconds kmavis 02:10 PM ZW=821 bpm, OBPK=450/100 mmhg, SpO2=97.0 %, Resp=17 B/min 02:10 PM Stent balloon reinflated @ 18 bryan for 10 seconds kmavis 02:11 PM Stent balloon reinflated @ 18 bryan for 7 seconds kmavis 02:12 PM Time: 14:12 Nitroglycerin 200 mcg Intracoronary Given by Chris Selby MD kmavis 02:13 PM Stent delivery system removed intact. kmavis 02:14 PM 3.0 mm x 30mm NC Emerge balloon across target lesion- successful. reused? No kmavis 02:15 PM Balloon inflated @ 14 bryan for 15 seconds kmavis 02:15 PM Balloon inflated @ 20 bryan for 12 seconds kmavis 02:15 PM HR=97 bpm, LKCC=337/93 mmhg, SpO2=96.0 %, Resp=17 B/min 02:16 PM Balloon inflated @ 20 bryan for 13 seconds kmavis 02:20 PM Recorded Pressure: Ao, HR=99, Condition=Condition 1 (Aorta) Ao 153/113/133 02:20 PM QM=415 bpm, PWJU=309/100 mmhg, SpO2=97.0 %, Resp=13 B/min 02:25 PM Balloon inflated @ 12 bryan for 13 seconds kmavis 02:25 PM HR=98 bpm, FVUW=092/94 mmhg, SpO2=99.0 %, Resp=17 B/min 02:25 PM Balloon inflated @ 20 bryan for 11 seconds kmavis 02:26 PM Balloon inflated @ 20 bryan for 11 seconds kmavis 02:27 PM Balloon catheter removed intact. kmavis 02:28 PM 3.75 mm x 20mm NC Emerge balloon across target lesion- successful. reused? No kmavis 02:29 PM Balloon inflated @ 12 bryan for 9 seconds kmavis 02:29 PM Balloon inflated @ 16 bryan for 9 seconds kmavis 02:30 PM Balloon inflated @ 16 bryan for 15 seconds kmavis 02:31 PM Balloon inflated @ 12 bryan for 11 seconds kmavis 02:31 PM Balloon inflated @ 12 bryan for 7 seconds kmavis 02:32 PM Balloon inflated @ 20 bryan for 13 seconds kmavis 02:32 PM Vitals capture stopped. 02:33 PM Vitals capture started with the following parameters, Patient=Adult, Interval=5 min, Initial Lkvryfbi=914 mmHg, Deflation Rate=3 mmHg, Cuff placed on Right Arm 02:34 PM KQ=542 bpm, GTIM=278/141 mmhg, SpO2=96 %, Resp=28 B/min 02:34 PM Time: 14:34 Hydralazine 20 mg Intravenous Given by Sloan Ortiz RN kmavis 02:34 PM Guide catheter removed intact. kmavis 02:35 PM Guide wire removed intact. kmavis 02:35 PM Balloon catheter removed intact. kmavis 02:35 PM Procedure completed at 14:35 05/02/2019 kmavis 02:35 PM Did you address DARIN flow and Dominance? YesCoronary Dominance: right kmavis 02:37 PM Sign out completed: Radiation Dose 1024.03 mGy, 87 Gy/cm2 Fluoro Time: 24.8 Isovue 370 - 200ml contrast 188 ml given by Chris Selby MD, [facility]. Complications: None. 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 Sedation minutes 96. Cardiac Rehab Consult needed: Yes. Confirmed administered medications: Yes kmavis 02:37 PM Isovue 370 - 200ml,2 Bottle(s) used. kmavis 02:37 PM Arterial sheath pulled, Vasc Band closure device used and was Successful S/N. kmavis 02:37 PM 14 ml air in Vasc Band. kmavis 02:38 PM Estimated Blood Loss: minimal kmavis 02:39 PM Post Blood Pressure 161/94 kmavis 02:44 PM Information taught Cardiac Cath, PCI, and Vasc Band kmavis 02:44 PM Education needs Plan of Care, Procedure, and Disease Process kmavis 02:44 PM Learning barriers :None kmavis 02:44 PM Education Methods Verbal kmavis 02:44 PM Education evaluation Able to repeat information kmavis 02:44 PM Site status No bleeding/ No Hematoma - Rt Arm as reported by Maliha Collins RT (R) at 14:44 kmavis 02:44 PM Opsite applied kmavis 02:46 PM Plavix, Effient or Brilinta given Yes kmavis 02:46 PM Delay to floor No kmavis 02:46 PM Patient out of room: 14:46 kmavis 02:46 PM Family placed in consult room. kmavis 02:46 PM Complications: None kmavis 03:00 PM Report given to Iam KC Pt taken to 2N Room #7. 15:12 kmavis 03:01 PM Coronary Dominance: right kmavis 03:01 PM Lesion found in Proximal RCA. Pre Stenosis: 100 Pre DARIN Flow: 2: Partial Flow/Perfusion (> 1 but < 3) kmavis 03:02 PM Lesion found in Distal RCA. Pre Stenosis: 100 Pre DARIN Flow: 2: Partial Flow/Perfusion (> 1 but < 3) kmavis 03:02 PM Lesion found in Right PDA. Pre Stenosis: 100 Pre DARIN Flow: 2: Partial Flow/Perfusion (> 1 but < 3) kmavis Complications Complication None None Hemodynamics Pressures Site Systolic/A Wave Diastolic/V Wave Mean AO 127 96 110 LV 139 70 83 LV 146 16 32 AO 143 18 73 LV 153 20 31 AO 152 87 118 AO 147 96 120 AO 163 117 139 AO 162 117 138 AO 153 113 133 Post Procedure Information Blood Pressure: 161/94 mmHg Post procedural instructions were given Closure Device Time Device Success/Fail 05/02/2019 2:48:00 PM Mechanical Compression Successful Site Checks Time Location Status Staff Sheath In? Note 02:44 PM Rt Arm No bleeding/ No Hematoma Maliha Collins RT (R) Pulses Time Site Pre-Procedure Post-Procedure Note Bilateral DP & PT 2+ Updated by Roseann Patricia RN on 05/02/2019 3:14:32 PM electronically signed on 05/02/2019 3:14:57 PM with status of Final
[2019-05-02] MEDS: Metoprolol XL (24 HR) Succ 25 MG TAB.ER.24H PO SCH (17:18)
[2019-05-02] MEDS: Mirtazapine 15 MG TABLET PO SCH (19:47)
[2019-05-03 01:33] LABS: Basophils % 0.3 %; Eosinophils # 0.2 K/mcL (0.0-0.6); Eosinophils % 1.6 %; Hematocrit 38.1 % (37.5-50.1); Hemoglobin 13.1 g/dL (12.9-16.9); Immature Granulocytes % 0.2 % (0-4); Lymphocytes # 2.6 K/mcL (0.6-4.6); Lymphocytes % 23.6 %; Mean Corpuscular HGB Conc 34.4 g/dL (31.6-35.5); Mean Corpuscular Hemoglobin 33.8 pg (28.0-33.3); Mean Corpuscular Volume 98.2 fL (83.0-100.0); Mean Platelet Volume 9.2 fL (9.4-12.4); Monocytes % 9.1 %; Neutrophils # 7.1 K/mcL (1.6-8.9); Platelet Count 186 K/mcL (140-400); Red Blood Count 3.88 M/mcL (4.19-5.50); Red Cell Distribution Width 13.5 % (11.5-14.5); Segmented Neutrophils % 65.2 %; White Blood Count 10.8 K/mcL (4.3-11.1)
[2019-05-03 02:13] LABS: BUN/Creatinine Ratio 17 (6-26); Blood Urea Nitrogen 13 mg/dL (8-23); Calcium 9.1 mg/dL (8.6-10.3); Carbon Dioxide 22 mEq/L (23-29); Chloride 108 mEq/L (98-107); Glucose 140 mg/dL (70-105); Magnesium 1.9 mg/dL (1.6-2.6); Osmolality,Calculated 290 (280-300); Phosphorous 3.7 mg/dL (2.7-4.5); Sodium 139 mEq/L (136-145); eGFR For African Americans > 60 (> 60); eGFR For Non-African Americans > 60 (> 60)
[2019-05-03 07:44] VITALS: BP 123/76
[2019-05-03] MEDS: Aspirin Enteric Coated 81 MG Tablet PO SCH (08:20)
[2019-05-03] MEDS: BuPROPion XL (24 HR) 150 MG TABLET PO SCH (08:20)
[2019-05-03] MEDS: Metoprolol XL (24 HR) Succ 25 MG TAB.ER.24H PO SCH (08:21)
[2019-05-03] MEDS: Insulin LISPRO 300 UNITS/3 ML VIAL SQ SCH (08:21)
[2019-05-03] MEDS: *HR* Ticagrelor 90 MG TABLET PO SCH (08:21)
--- NOTE | 2019-05-03 10:57 | Cardiology Progress Note ---
Date of Encounter: 05/03/19 Time of Encounter: 09:30 Assessment and Plan (1) NSTEMI (non-ST elevated myocardial infarction) Current Visit: Yes Status: Acute Per Cardiology: -Peak trop 6.25. -Underwent LHC yesterday with 4 TRISTIN to RCA. -Denies chest pain. -Recent TTE with LVEF 40-45% with global and segmental variations. -ON asa, brilinta, statin, BB, tabatha inhibitor. Educated on dual anti-platelet therapy uninterrupted for at least one year, states understanding. Brilinta assistance card given to patient. -Right radial access site without ecchymosis or hematoma. -Cardiology will sign off, will arrange close outpatient setting. (2) CAD (coronary artery disease) Current Visit: No Status: Chronic Per Cardiology: -See NSTEMI as above. Qualifiers: Coronary Disease-Associated Artery/Lesion type: [place] artery [place] vs. transplanted heart: [place] heart Associated angina: angina presence un specified Qualified Code(s): I25.10 - Atherosclerotic heart disease of [place] coronary artery without angina pectoris Discussion w patient/family: The assessment and plan as outlined above was discussed with the patient who expressed understanding and agreement. All questions were answered. Thank you for involving us in the care of your patient. Please call with any questions. Discussed and reviewed with Subjective Principal diagnosis: NSTEMI Interval history: Patient is s/p LHC yesterday with PCI to RCA. Patient denies chest pain. Denies issues with radial access site. Objective Vital Signs, Last 4 Hours Temp Pulse Resp BP Pulse Ox 05/03/19 07:42 98.0 F 89 18 123/76 94 General: Conversant, No Apparent Distress HEENT: Atraumatic, Normocephaly, Mucus Membranes Moist Neck: No JVD, Normal carotid pulses Cardiac: Reg Rate and Rhythm, Normal S1 and S2, No Murmur Lungs: Normal Breath Sounds, No Wheeze, Rales, Rhonchi Neuro: Alert and responsive, No focal deficits noted Abdomen: Soft, Non-Tender Skin: No rashes noted on visualized skin, Other (Right radial acces site without ecchymosis or hematoma. ) Musculoskeletal: No Chest Wall Tenderness Extremities: No Clubbing, No Cyanosis, No Edema, Normal Pulses Results 05/03/19 01:17 05/03/19 01:17 Lab Results Active Medications Acetaminophen (Tylenol) 650 mg PO Q4HR PRN PRN Reason: Pain Stop: 10/31/19 20:26 Last Admin: 05/02/19 17:17 Dose: 650 mg Documented by: Hydrocodone Bitart/Acetaminophen ([place] 5-325 Mg) 1 tab PO Q8HR PRN PRN Reason: Chest Pain Stop: 10/31/19 16:01 Last Admin: 05/02/19 11:53 Dose: 1 tab Documented by: Aspirin (Aspirin Ec) 81 mg PO DAILY [facility] Stop: 11/01/19 09:01 Last Admin: 05/03/19 08:20 Dose: 81 mg Documented by: Atorvastatin Calcium (Lipitor) 80 mg PO HS [facility] Stop: 10/31/19 21:01 Last Admin: 05/02/19 19:47 Dose: 80 mg Documented by: Bupropion HCl (Wellbutrin Xl) 300 mg PO DAILY [facility] Stop: 11/01/19 09:01 Last Admin: 05/03/19 08:20 Dose: 300 mg Documented by: Dextrose/Water (Dextrose 50% (Syg)) 25 ml IVP AD PRN PRN Reason: Hypoglycemia Stop: 10/31/19 15:47 Glucagon (Glucagen) 1 mg IM ONCE PRN PRN Reason: Hypoglycemia Stop: 10/31/19 15:47 Glucose (Gluctose) 15 gm PO ONCE PRN PRN Reason: Hypoglycemia Stop: 10/31/19 15:47 Glucose (Gluctose) 30 gm PO ONCE PRN PRN Reason: Hypoglycemia Stop: 10/31/19 15:47 Heparin Sodium (Porcine) (Heparin) 4,000 unit IVP Q6HR PRN PRN Reason: SEE COMMENTS Stop: 10/31/19 14:22 Heparin Sodium (Porcine) (Heparin) 2,000 unit IVP Q6H PRN PRN Reason: SEE COMMENTS Stop: 10/31/19 14:22 Last Admin: 05/02/19 04:57 Dose: 2,000 unit Documented by: Nitroglycerin (Nitroglycerin Premix 25 Mg/250 Ml) 25 mg in 250 mls @ 12 mls/hr IVC .[id number] [facility]; Protocol Stop: 10/31/19 14:31 Last Titration: 05/03/19 07:26 Dose: 0 mcg/min, 0 mls/hr Documented by: Dextrose (Dextrose 5%) 1,000 mls @ 100 mls/hr IVC .Q10H PRN PRN Reason: HYPOGLYCEMIA Stop: 10/31/19 15:47 Insulin Human Lispro (Humalog) 0 units SQ TIDAC [facility]; Protocol Stop: 10/31/19 16:31 Last Admin: 05/03/19 08:21 Dose: 2 units Documented by: Lisinopril (Zestril) 5 mg PO DAILY [facility]; Protocol Stop: 11/01/19 09:01 Last Admin: 05/03/19 08:21 Dose: 5 mg Documented by: Metoprolol Succinate (Toprol Xl) 12.5 mg PO DAILY [facility] Stop: 11/01/19 15:45 Last Admin: 05/03/19 08:21 Dose: 12.5 mg Documented by: Mirtazapine (Remeron) 30 mg PO HS [facility] Stop: 10/31/19 21:01 Last Admin: 05/02/19 19:47 Dose: 30 mg Documented by: Morphine Sulfate (Morphine) 2 mg IVP Q4HR PRN; Protocol PRN Reason: Chest Pain Stop: 10/31/19 23:41 Last Admin: 05/02/19 17:17 Dose: 2 mg Documented by: Naloxone HCl (Narcan) 0.4 mg IVP Q2MPRN PRN PRN Reason: SEE COMMENTS Stop: 10/31/19 15:42 Ondansetron HCl (Zofran) 4 mg IVP Q6HR PRN; Protocol PRN Reason: Nausea And Vomiting Stop: 11/01/19 15:03 Ticagrelor (Brilinta) 90 mg PO BID [facility] Stop: 11/01/19 10:01 Last Admin: 05/03/19 08:21 Dose: 90 mg Documented by: Laboratory Tests 05/03/19 05/03/19 01:17 01:17 Hgb 13.1 Creatinine 0.78 - Imaging and Cardiology Chest Xray: report reviewed Echo: report reviewed Cardiac cath: report reviewed - EKG Interpretation EKG results cardiology: other (Telemetry reviewed with average HR previous 12 hours noted to be 86, SR. PVCs and PACs noted.) Consult Discharge Plan - Plan Referrals: Jake Moore MD [Primary Care Provider] - 05/09/19 8:15 am Galen Early MD [Non-Partnered Physician] - 05/10/19 11:40 am
--- NOTE | 2019-05-03 11:42 | Discharge Summary ---
Orders not resulted at time of discharge: Pending orders 05/01/19 21:41 EKG [ECG 12 lead ECG] [ECG] Stat 05/02/19 08:26 CL Cardiac Catheterization [CL] Routine 05/02/19 15:00 ECG 12 lead ECG [ECG] Stat 05/03/19 06:00 ECG 12 lead ECG [ECG] AM 0600 Date of Encounter: 05/03/19 Time of Encounter: 11:40 - Discharge Diagnosis (1) NSTEMI (non-ST elevated myocardial infarction) Priority: Primary Status: Resolved (2) CAD (coronary artery disease) Priority: Secondary Status: Chronic Qualifiers: Coronary Disease-Associated Artery/Lesion type: [place] artery [place] vs. transplanted heart: [place] heart Associated angina: angina presence unspecified Qualified Code(s): I25.10 - Atherosclerotic heart disease of [place] coronary artery without angina pectoris (3) Diabetes Priority: Secondary Status: Chronic Qualifiers: Diabetes mellitus type: type 2 Diabetes mellitus terminal block assembler insulin use: without terminal block assembler use Diabetes mellitus complication status: with other specified complication Qualified Code(s): E11.69 - Type 2 diabetes mellitus with other specified complication (4) HTN (hypertension) Priority: Secondary Status: Chronic Qualifiers: Hypertension type: essential hypertension Qualified Code(s): I10 - Essential (primary) hypertension Hospital course: Mr. Whitney is a 63 year old male history of CAD status post PCI 3 years ago, diabetes, hypertension, PAD, tobacco abuse, who presented to the ED with sudden onset of chest pain. Patient recently admitted on 04/27/19 due to NSTEMI underwent LHC and was discharged on optimal medical therapy. Returned to the hospital today due to sudden onset retro-sternal chest pain. Patient admitted to the hospital due to NSTEMI. Placed on ACS pathway. Cardiology consulted and patient underwent LHC: RCA and R PDA 100% thrombosis sp complex PCI with TRISTIN x 4 overlapping with religion of DARIN 3 flow. EF 50% with severe inferior hypokinesis. Patient acute symptoms on presentation resolved following LHC. Patient is hemodynamically stable to be discharged home. Patient is being discharged on bb, dual antiplatelet, aces and statin. Recommended to follow up with cardiology within a week of hospital discharge. - Time Spent with Patient Total time spent providing and/or coordinating discharge services: Time spent: Greater than 30 minutes (35) - Discharge Medications Prescriptions: New Ticagrelor [Brilinta] 90 mg PO BID 30 Days #60 tablet Continued Lisinopril [Zestril] 5 mg PO DAILY Bupropion HCl [Wellbutrin Xl] 300 mg PO DAILY Aspirin Enteric Coated [Aspirin EC] 81 mg PO DAILY Mirtazapine [Remeron] 30 mg PO HS Metformin HCl [Metformin ER Osmotic] 500 mg PO BIDWM Isosorbide MONOnitrate (24 HR) [Imdur] 30 mg PO DAILY #30 tab.er.24h Nitroglycerin 0.4 mg SL Q5MPRN PRN #90 tab.subl PRN Reason: Chest Pain Metoprolol XL (24 HR) Succ [Toprol Xl] 25 mg PO DAILY #30 tab.er.24h Atorvastatin Calcium [Lipitor] 80 mg PO HS #30 tab Nicotine Patch [Nicoderm] 14 mg TD DAILY #14 patch.td24 Home Medications: Aspirin Enteric Coated [Aspirin EC] 81 mg PO DAILY 04/27/19 [History] Bupropion HCl [Wellbutrin Xl] 300 mg PO DAILY 04/27/19 [History] Lisinopril [Zestril] 5 mg PO DAILY 04/27/19 [History] Metformin HCl [Metformin ER Osmotic] 500 mg PO BIDWM 04/27/19 [History] Mirtazapine [Remeron] 30 mg PO HS 04/27/19 [History] Atorvastatin Calcium [Lipitor] 80 mg PO HS #30 tab 04/29/19 [Rx] Isosorbide MONOnitrate (24 HR) [Imdur] 30 mg PO DAILY #30 tab.er.24h 04/29/19 [Rx] Metoprolol XL (24 HR) Succ [Toprol Xl] 25 mg PO DAILY #30 tab.er.24h 04/29/19 [Rx] Nitroglycerin 0.4 mg SL Q5MPRN PRN #90 tab.subl 04/29/19 [Rx] Nicotine Patch [Nicoderm] 14 mg TD DAILY #14 patch.td24 05/03/19 [Rx] Ticagrelor [Brilinta] 90 mg PO BID 30 Days #60 tablet 05/03/19 [Rx] Allergies/Adverse Reactions: Allergy/AdvReac Type Severity Reaction Status Date / Time No Known Allergies Allergy Verified 05/02/19 09:48 Date of admission: 05/02/19 14:04 Primary care physician: Jake Moore MD Consults: 05/01/19 15:33 Consult to Cardiology [CONS] Stat Comment: Consulting Provider: Cardiology Magali Reason for Consult: elevated trop Call Completed: Yes 05/02/19 10:15 Consult to Cardiac Rehabilitation-Phase1 [CONS] Routine Comment: Reason for Consult: NSTEMI Call Completed: No - Constitutional Vitals: Temp Pulse Resp BP Pulse Ox 98.0 F 89 18 123/76 94 05/03/19 07:42 05/03/19 07:42 05/03/19 07:42 05/03/19 07:42 05/03/19 07:42 Exam: Vitals: Reviewed General: Alert and oriented x4. In no distress Cardiovascular: RRR, normal S1 & S2, no rubs, murmurs or gallops. Lungs: CTA b/l, no wheezes or crackles. Abdomen: Obese, soft, non-tender, no rigidity. Extremities: No edema. Neurological: No focal neurological findings Rest of the physical exam is non contributory - Patient Status Disposition: Home, Self-Care Condition: Good Functional capacity at discharge: independent ambulation Overall status at discharge: patient is back to baseline - Discharge Instructions Follow Up With: Jake Moore MD [Primary Care Provider] - 05/09/19 8:15 am Galen Early MD [Non-Partnered Physician] - 05/10/19 11:40 am - Diet and Activity Activity: resume usual activities as tolerated Diet: diabetic diet, low salt diet
--- NOTE | 2019-05-03 16:18 | Electrocardiograph Report ---
[address] [place], [place] [address] Test Date: 2019-05-01 Pat Name: Sujit Whitney Department: 110 Room: 2N07 Gender: M Partition Notcher: : [id number] Requested By: Ana Rosa Macario Order Number: [id number] Reading MD: Tatianna Dinero Measurements Intervals [place] Rate: 83 P: 49 IN: 143 QRS: -22 QRSD: 106 T: -32 QT: 361 QTc: 401 Interpretive Statements SINUS RHYTHM INFERIOR MYOCARDIAL INFARCTION [40+ ms Q WAVE AND/OR ST/T ABNORMALITY IN II/aVF], PROBABLY RECENT ACUTE MO Electronically Signed On 05-03-2019 16:16:19 EDT by Tatianna Dinero
== END 2019-05-03 12:55 | disposition home or self-care (01) | DRG 175 ==
LOC: 3BNU 13:36 → EMEROOARM 13:36 → 3BNU 17:00 → 2NNU 19:44
PROVIDERS: ADMIT Internal Medicine; ATTEND Internal Medicine